=== PATIENT | male | born 1955 | race Caucasian/White ===

== ENCOUNTER 2022-01-02 10:58 | Outpatient (RCR) | payer MEDICARE, BC, SELFPAY ==
[2021-12-26 09:21] LABS: Basophils Absolute Auto 0.03 K/uL (0.00-0.30); Basophils Percent Auto 0.5 % (0.0-3.0); Eosinophils Absolute Auto 0.14 K/uL (0.00-0.50); Eosinophils Percent Auto 2.3 % (0.0-7.0); Hematocrit 46.4 % (37.0-53.0); Hemoglobin* 15.4 gm/dL (13.5-17.5); Immature Granulocytes Abs Auto 0.05 K/uL (0.00-0.30); Mean Corpuscular HGB Conc 33 gm/dL (32-36); Mean Corpuscular Hemoglobin 30 pg (26-34); Mean Corpuscular Volume 91 fL (80-100); Neutrophils Absolute Auto 4.29 K/uL (1.7-7.0); Neutrophils Percent Auto 71.4 % (42.0-72.0); Platelet Count* 168 K/uL (140-440); RDW Coefficient of Variation % 13.6 % (11.5-15.5); Red Blood Count 5.12 m/uL (4.30-5.90); White Blood Count* 6.01 K/uL (4.50-11.00)
[2021-12-26 09:25] LABS: Slide Review Reflex No
[2021-12-26 09:37] LABS: Albumin* 4.6 g/dL (3.3-5.0); Chloride* 102 mmol/L (96-114); Potassium* 4.3 mmol/L (3.6-5.1); Sodium* 140 mmol/L (135-149)
[2021-12-26 09:39] LABS: Creatinine* 1.1 mg/dL (0.5-1.5); Estimated Glomerular Filt Rate 74 ml/min
[2021-12-26 09:40] LABS: Alanine Aminotransferase* 25 U/L (4-50); Alkaline Phosphatase* 51 U/L (40-150); Aspartate Amino Transferase* 23 U/L (12-35); Bilirubin Total* 0.5 mg/dL (0.1-1.5); Blood Urea Nitrogen* 18 mg/dL (7-30); Carbon Dioxide* 30 mmol/L (20-32); Glucose* 113 mg/dL (60-115); Total Protein* 7.4 g/dL (6.0-8.3)
[2021-12-26 09:41] LABS: Calcium* 9.6 mg/dL (8.4-10.6)
--- NOTE | 2022-02-21 10:05 | ONC.NURNOTE ---
Addendum entered and electronically signed by Tatyana Varela APRN 03/03/22 13:34: Spoke with patient's Avril regarding colonoscopy and enoxaparin. Per routine preop orders, hold for 12 hours pre-procedure and restart 12-24 hours after. Mr. Whitehead is dosed daily. Recommend for him to hold dose the day before procedure and resume the day after procedure. Avril states understanding. Original Note: Patient has colonoscopy scheduled for May 2022. Provider is asking about length of time that patient should be off of enoxaparin with this procedure. Dr. Garibay to be asked on , and spouse (Avril) to be called with answer: [phone].
--- NOTE | 2022-04-20 16:02 | PC.NURSE ---
Pt's , Avril, called to ask for clarification about Lovenox re-start instructions. Avril states that the discharge paperwork stated to restart on Sunday and the mobile nurse stated to restart on Sunday. RN advised Avril to call endoscopy tomorrow morning to ask for clarification from the providers who did the procedure.
== END 2022-06-24 23:59 | disposition home or self-care (01) ==
LOC: CCIC 10:58
PROVIDERS: PCP Family Medicine; Referring Provider Family Medicine; Visit Provider Internal Medicine Medical Oncology
DX: C34.91 Malignant neoplasm of unspecified part of right bronchus or lung (principal); I26.99 Other pulmonary embolism without acute cor pulmonale
CPT/HCPCS: 36415; 71250; 80053; 85025; 99212; 99214; 99442

== ENCOUNTER 2022-04-20 10:24 | Outpatient (CLI) | payer MEDICARE, BC, SELFPAY | END 2022-04-20 10:25 | disposition home or self-care (01) | LOC: OP CLINIC 10:26 | PROVIDERS: PCP Family Medicine; Visit Provider Surgery | DX: Z12.11 Encounter for screening for malignant neoplasm of colon (principal); K63.5 Polyp of colon; K62.1 Rectal polyp; Z86.010 Personal history of colon polyps | CPT/HCPCS: 45385; 88305; 99153; J1200; J2250; J3010 ==

== ENCOUNTER 2022-07-15 08:00 | Emergency (ER) | payer MEDICARE, BC, SELFPAY ==
[2022-07-15] VITALS (16 sets, daily range): BP systolic 129–187; BP diastolic 88–110; PULSE 66–88; RESP 18; TEMP 36.3; O2SAT 94–100; BMI 34.4
--- NOTE | 2022-07-15 08:26 | CRLHL7_ITS ---
For Patients: As a result of the Century Cures Act, medical imaging exams and procedure reports are released immediately into your electronic medical record. You may view this report before your referring provider. If you have questions, please contact your health care provider. DATE: 07/15/2022. CLINICAL HISTORY: Facial droop. TECHNIQUE: Standard helical CT image acquisition of the brain was performed. COMPARISON: None available. FINDINGS: Centered in the left basal ganglia, there is a 2.0 cm x 1.8 cm rounded masslike density, similar in attenuation to the weiner matter, with moderately extensive surrounding hypoattenuation throughout the deep white matter tracts, the subinsular region, and extending into the left frontal lobe. There is local mass effect, manifested by effacement of adjacent cerebral sulci, as well as approximately 4 mm of left to right midline shift. There is no acute intracranial hemorrhage. No hydrocephalus. Patchy hypoattenuation in the white matter of both hemispheres likely reflects sequela of chronic small vessel ischemia. There is no intracranial hemorrhage. No extra-axial collection, mass effect, or midline shift. Weiner-white matter differentiation is preserved. The ventricles are normal in size and morphology for patient age. The calvarium is unremarkable. The orbits are unremarkable. Mild mucosal thickening of the sphenoid sinuses and the ethmoid air cells. The mastoid air cells are unremarkable. The soft tissues are unremarkable. IMPRESSION: 2.0 cm x 1.8 cm rounded masslike density in the left basal ganglia, with moderately extensive surrounding hypoattenuation in the deep white matter tracts, subinsular region, extending into the left frontal lobe, with approximately 4 mm of left to right midline shift. Differential considerations include an infectious/inflammatory process versus a neoplastic process. Further assessment with MRI of the brain with and without gadolinium is recommended. Please note that all CT scans at this facility use dose modulation, iterative reconstruction, and/or weight-based dosing when appropriate to reduce radiation dose to as low as reasonably achievable. Dictated by Jared Valenzuela MD @ 07/15/2022 9:37:48 AM (Electronically Signed)
--- NOTE | 2022-07-15 08:36 | ED.GENADULT ---
HPI - General Adult General Chief complaint: Neuro Symptoms/Altered Deficit Stated complaint: Thinks he's having a stroke, pressure in head Time Seen by Provider: 07/15/22 08:02 Source: patient and family Mode of arrival: ambulatory Limitations: no limitations History of Present Illness HPI narrative: 66-year-old male coming in today complaining of feeling funny. States that he has felt unwell for approximately 10 days. He complains of pressure in his head. He states that today he woke up he felt very shaky. He denies fevers or chills. States that in the last 10 days he has felt very forgetful. He states that he often forgets a word that he wants to use, states that this occurs 10-15 times per day. Appetite has been normal, no changes in his vision or hearing. No focal neurologic deficits. He does feel like the right hand however if shake ear than the left. No slurred speech. No vertigo. No difficulty with ambulation. Per his daughter, she noticed that the right side of his mouth was a little droopier this morning when she saw him than the last time she saw him yesterday. 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 He denies missing any doses. He also has a history of lung cancer that has been remission for the last 4 years, he does get check ups every 6 months. Related Data Home Medications Medication Instructions Recorded Confirmed ascorbic acid (vitamin C) 500 mg 500 mg PO QDAY 01/02/22 07/13/22 tablet cholecalciferol (vitamin D3) 25 25 mcg PO QDAY 01/02/22 07/13/22 mcg (1,000 unit) capsule cyanocobalamin (vitamin B-12) 1,000 mcg PO QDAY 01/02/22 07/13/22 1,000 mcg capsule omeprazole 20 mg capsule,delayed 20 mg PO QDAY 01/02/22 07/13/22 release propranolol 40 mg tablet 40 mg PO DAILY 01/02/22 07/13/22 Previous Rx's Medication Instructions Recorded finasteride 5 mg tablet 5 mg PO QDAY #90 tabs 10/05/21 enoxaparin 150 mg/mL subcutaneous 40 mg (0.2667 mL) subcut DAILY #30 02/01/22 syringe mL albuterol sulfate 90 mcg/actuation 2 puff inhalation QID PRN 03/06/22 aerosol inhaler (Ventolin HFA) shortness of breath or wheezing #8.5 grams dexamethasone 4 mg tablet 4 mg PO BID 20 days #40 tabs 07/15/22 levetiracetam 750 mg tablet 750 mg PO BID 20 days #40 tabs 07/15/22 (Keppra) Allergies Allergy/AdvReac Type Severity Reaction Status Date / Time No Known Allergies Allergy Unknown Verified 07/15/22 08:55 Review of Systems Status of ROS: Reports: 10 or more systems reviewed and unremarkable except as noted in History and below [facility] Medical History Health care directive on file ?Z78.9 - Other specified health status (ICD-10) History of colonic polyps (05/22/18) ?Z86.010 - Personal history of colonic polyps (ICD-10) History of deep venous thrombosis (DVT) of distal vein of right lower extremity (05/03/18) ?Z86.718 - Personal history of other venous thrombosis and embolism (ICD-10) Surgical History History of colonoscopy (06/01/18) ?Z98.890 - Other specified postprocedural states (ICD-10) Social History Narrative: Tobacco use Smoking Status: Former smoker How often do you have a drink containing alcohol: never How often do you have six or more drinks on one occasion: Never AUDIT-C Alcohol total score: 0 Non-prescribed substance use: denies use service: No Exam Narrative: Exam Narrative: Overweight, well-developed patient in no acute distress but is slightly anxious. Alert and oriented x3. Answers questions appropriately. Thoughts are goal oriented and rational. No tangential or magical thinking noted. Patient speaks in full sentences without needing to catch his breath. Speech is not slurred or pressured. HEENT: Normocephalic atraumatic. Pupils are equally round reactive to light. Extraocular muscles are intact. Conjunctivae are moist without any icterus noted. Moist mucous membranes. Posterior pharynx is normal. It does appear the patient has a very slight right sided mouth droop. Eyebrows moves symmetrically and remainder of the face appears normal. Cardiovascular: Heart is regular rate and rhythm S1 and S2 are present without any murmurs. Lungs: Slightly decreased breath sounds bilaterally. Abdomen: Soft and nontender nondistended with normal bowel sounds. Protuberant. Extremities: Bilateral lower extremities are without edema. Skin: Well perfused without any obvious rashes. Strength is 5/5 of the upper and lower extremities. Reflexes are 2+ and symmetric at the knees. Romberg sign is negative. No pronator drift. Cranial nerves 3-12 are normal aside from the slight asymmetry of the mouth. [id number] is normal. [id number] is normal. There is no nystagmus either horizontally or vertically. Gait is normal. Const: Vital Signs, click to edit/add: Vital Signs - 24 hr 07/15/22 08:04 07/15/22 08:27 07/15/22 08:09 Temperature 97.4 F L Pulse Rate 74 Respiratory Rate 18 Blood Pressure 182/110 H Blood Pressure [Le ft Upper Arm] 187/103 H Pulse Oximetry 98 100 99 Oxygen Delivery Me thod Room Air 07/15/22 08:10 07/15/22 08:15 07/15/22 08:30 Temperature Pulse Rate 75 75 71 Respiratory Rate Blood Pressure Blood Pressure [Le ft Upper Arm] Pulse Oximetry 98 98 98 Oxygen Delivery Me thod 07/15/22 09:24 07/15/22 09:26 07/15/22 09:30 Temperature Pulse Rate 66 66 67 Respiratory Rate Blood Pressure 147/95 H Blood Pressure [Le ft Upper Arm] Pulse Oximetry 95 94 96 Oxygen Delivery Me thod 07/15/22 09:32 07/15/22 09:33 07/15/22 11:15 Temperature Pulse Rate 67 66 68 Respiratory Rate Blood Pressure 129/90 H 129/94 H Blood Pressure [Le ft Upper Arm] Pulse Oximetry 96 96 97 Oxygen Delivery Me thod 07/15/22 11:16 Temperature Pulse Rate 67 Respiratory Rate Blood Pressure Blood Pressure [Le ft Upper Arm] Pulse Oximetry 98 Oxygen Delivery Me thod Course Course Hospital Course: IV established and labs were drawn. Patient went to CT for stroke protocol, however we stopped after the head CT came back with an obvious abnormality. Per radiologist abnormality appear to be either inflammatory, infectious or neoplastic. I did discuss the case with Dr. Zamudio and Dr. Coughlin, oncologist and neurologist respectively at [facility], who recommended an MRI. MRI did show that same lesion with 2 more areas, all consistent with neoplastic disease. EKG, read by me, shows sinus rhythm with a pulse of 67, first-degree AV block. Patient's lab work was unremarkable aside from 2-5 RBCs in his urine. Per the [place] team, they recommended IV Decadron which was given in the ER today and discharge on Keppra, Decadron and omeprazole. Vital Signs Vital signs: Initial Vital Signs Temperature 97.4 F L 07/15/22 08:04 Temperature Source Temporal Artery Scan 07/15/22 08:04 Pulse Rhythm Regular 07/15/22 08:04 Respiratory Rate 18 07/15/22 08:04 Blood Pressure 187/103 H 07/15/22 08:04 Blood Pressure Mean 131 H 07/15/22 08:04 Blood Pressure Position Sitting 07/15/22 08:04 Pulse Oximetry 98 07/15/22 08:04 Oxygen Delivery Method Room Air 07/15/22 08:04 Vital Signs Temperature 97.4 F L 07/15/22 08:04 Respiratory Rate 18 07/15/22 08:04 Blood Pressure 187/103 H 07/15/22 08:04 Pulse Oximetry 98 07/15/22 08:04 Oxygen Delivery Method Room Air 07/15/22 08:04 Temperature 97.4 F L 07/15/22 08:04 Pulse Rate 67 07/15/22 11:16 Respiratory Rate 18 07/15/22 08:04 Blood Pressure 129/94 H 07/15/22 11:15 Pulse Oximetry 98 07/15/22 11:16 Oxygen Delivery Method Room Air 07/15/22 08:04 Medical Decision Making MDM Narrative Medical decision making narrative: 66-year-old male with what appears to be likely metastatic brain cancer. Patient's symptoms have not progressed throughout his stay here. Therefore it was decided that he was stable to go home. Will be sent home on Keppra, Decadron and he is already taking omeprazole which he is to continue. He will follow up with his cancer team Sunday, he already has an appointment scheduled. The [facility] Neurology and Oncology team will also call him on Sunday and he is instructed to call them in the event he does not hear from them by noon. Patient and his family were agreeable with everything we discussed and had no other questions. Medical Records Medical records reviewed: Yes I reviewed the patient's medical records Lab Data Lab results reviewed: Yes I reviewed the patient's lab results Labs: Lab Results 07/15/22 07/15/22 07/15/22 Range/Units 08:27 08:28 08:45 WBC 6.53 (4.50-11.00) K/uL RBC 5.49 (4.30-5.90) m/uL Hgb 16.2 (13.5-17.5) gm/dL Hct 49.3 (37.0-53.0) % MCV 90 (80-100) fL MCH 30 (26-34) pg MCHC 33 (32-36) gm/dL RDW Coeff of [place] 13.0 (11.5-15.5) % Plt Count 210 (140-440) K/uL Neut % (Auto) 75.8 H (42.0-72.0) % Lymph % (Auto) 12.3 L (20-44) % [place] % (Auto) 9.6 (0.0-11.0) % Eos % (Auto) 1.5 (0.0-7.0) % Baso % (Auto) 0.6 (0.0-3.0) % Neut # (Auto) 4.90 (1.7-7.0) K/uL Lymph # (Auto) 0.80 L (0.90-2.90) K/uL [place] # (Auto) 0.60 (0.00-0.90) K/UL Eos # (Auto) 0.10 (0.00-0.50) K/uL Baso # (Auto) 0.04 (0.00-0.30) K/uL Sodium 138 (135-149) mmol/L Potassium 4.4 (3.6-5.1) mmol/L Chloride 102 (96-114) mmol/L Carbon Dioxide 29 (20-32) mmol/L BUN 20 (7-30) mg/dL Creatinine 1.2 (0.5-1.5) mg/dL Estimated Creat Clear 53.91 Estimated GFR 66 ml/min Glucose 113 (60-115) mg/dL Lactate 0.7 (0.5-1.9) mmol/L Calcium 9.3 (8.4-10.6) mg/dL Total Bilirubin 0.7 (0.1-1.5) mg/dL Direct Bilirubin 0.3 (0.0-0.5) mg/dL AST 23 (12-35) U/L ALT 29 (4-50) U/L Alkaline Phosphatase 42 (40-150) U/L Troponin I < 0.01 L (0.01-0.04) ng/mL C-Reactive Protein 0.6 (0.5-1.0) mg/dL Total Protein 7.9 (6.0-8.3) g/dL Albumin 4.6 (3.3-5.0) g/dL TSH 2.330 (0.270-4.20) uIU/mL Urine Color Yellow (Yellow) Urine Appearance Clear (Clear) Urine pH 6.0 (5.0-8.5) Ur Specific [place] 1.010 (1.000-1.030) Urine Protein Negative (Negative) Urine Glucose (UA) Negative (Negative) Urine Ketones Negative (Negative) Urine Blood Trace-intact A (Negative) Urine Nitrite Negative (Negative) Urine Bilirubin Negative (Negative) Urine Urobilinogen 0.2 (0.2-1.0) Ur Leukocyte Esterase Negative (Negative) Urine RBC 2-5 A (0-2) Urine WBC 0-2 (0-5) Ur Squamous Epith Cells Few (None-Few) Urine Bacteria None (None) Urine Opiates Screen Negative (Negative) Ur Oxycodone Screen Negative (Negative) Urine Methadone Screen Negative (Negative) Ur Propoxyphene Screen Negative (Negative) Ur Barbiturates Screen Negative (Negative) U Tricyclic Antidepress Negative (Negative) Ur Phencyclidine Scrn Negative (Negative) Ur Amphetamines Screen Negative (Negative) U Methamphetamines Scrn Negative (Negative) U Benzodiazepines Scrn Negative (Negative) Urine Cocaine Screen Negative (Negative) U Marijuana (THC) Screen Negative (Negative) Ur Drug Screen Comment See Note Ethyl Alcohol < 0.01 L (0.01-0.03) % POC Troponin I 0.01 (0.01-0.04) ng/ml Imaging Data CT scan - head: Attestation: I have reviewed the pertinent imaging results. Radiologist's impression: Standard helical CT image acquisition of the brain was performed. COMPARISON: None available. FINDINGS: Centered in the left basal ganglia, there is a 2.0 cm x 1.8 cm rounded masslike density, similar in attenuation to the weiner matter, with moderately extensive surrounding hypoattenuation throughout the deep white matter tracts, the subinsular region, and extending into the left frontal lobe. There is local mass effect, manifested by effacement of adjacent cerebral sulci, as well as approximately 4 mm of left to right midline shift. There is no acute intracranial hemorrhage. No hydrocephalus. Patchy hypoattenuation in the white matter of both hemispheres likely reflects sequela of chronic small vessel ischemia. There is no intracranial hemorrhage. No extra-axial collection, mass effect, or midline shift. Weiner-white matter differentiation is preserved. The ventricles are normal in size and morphology for patient age. The calvarium is unremarkable. The orbits are unremarkable. Mild mucosal thickening of the sphenoid sinuses and the ethmoid air cells. The mastoid air cells are unremarkable. The soft tissues are unremarkable. IMPRESSION: 2.0 cm x 1.8 cm rounded masslike density in the left basal ganglia, with moderately extensive surrounding hypoattenuation in the deep white matter tracts, subinsular region, extending into the left frontal lobe, with approximately 4 mm of left to right midline shift. Differential considerations include an infectious/inflammatory process versus a neoplastic process. Further assessment with MRI of the brain with and without gadolinium is recommended. MR Brain: Attestation: I have reviewed the pertinent imaging results. Radiologist's impression: Technique: Multiplanar, multisequence MRI of the brain obtained without and with contrast. A total of 15 mL of gadolinium-based IV contrast was administered. Comparison: CT head 07/15/2022, MRI brain 02/10/2020 Findings: 2.5 cm enhancing mass, the left frontal oconnell radiata (series 11, image 65). 7 mm ring-enhancing lesion, left hippocampal body (series 11 image 97). 6 mm enhancing nodule, right inferior cerebellum (series 11, image 126). No other suspicious brain parenchymal enhancement. Redemonstration of incidental right parietal DVA. Extensive surrounding vasogenic edema surrounding the left frontal oconnell radiata lesion, with milder edema about the subcentimeter lesions. Approximately 5-6 mm rightward midline shift. No evidence of acute/subacute ischemia, intracranial hemorrhage, or abnormal extra-axial fluid collection. Background of small scattered FLAIR hyperintense white matter foci, typical for mild chronic microangiopathy. Major expected intracranial flow voids are preserved where visualized. Bone marrow signal is unremarkable. Ethmoid sinus mucosal thickening. No paranasal sinus air-fluid level or mastoid effusion. Unremarkable visualized orbits. Impression: Approximately 2.5 cm enhancing mass in the left frontal oconnell radiata, with extensive surrounding vasogenic edema and 5-6 mm rightward midline shift. Smaller subcentimeter enhancing lesions are present within the left hippocampal body and right inferior cerebellum. Given history of prior malignancy, these are highly suspicious for metastatic disease. Clinical correlation advised. ECG Data Attestation: I personally reviewed and interpreted this ECG as follows: Discharge Plan Discharge Clinical Impression: Brain lesion Patient Disposition: Home, Self-Care Condition: Stable Additional Instructions: Start Decadron as directed-this will decrease the amount of swelling around the lesion in the brain to help you feel better. We will also be started on Keppra, this medication will prevent any seizures which can occur secondary to the swelling in the brain. Continue your daily omeprazole. Continue these medications as long as your oncologist wants you to be on them. Make sure to follow-up 1st thing Sunday morning with your oncology team and make sure that your oncologist is aware of what occurred this weekend. You will be sent home with a copy of the reports of all of your scans. The [facility] team will be calling you on Sunday to set up follow-up appointments with Neurology and Oncology. If you do not hear from them by noon I do recommend you call them to have all your appointment scheduled. Alfie Hernandez (oncologist and neurologist at [facility]) are aware of today's visit. Prescriptions: New levetiracetam [Keppra] 750 mg tablet 750 mg PO BID 20 Days Qty: 40 0RF dexamethasone 4 mg tablet 4 mg PO BID 20 Days Qty: 40 0RF No Action omeprazole 20 mg capsule,delayed release(DR/EC) 20 mg PO QDAY propranolol 40 mg tablet 40 mg PO DAILY ascorbic acid (vitamin C) 500 mg tablet 500 mg PO QDAY cholecalciferol (vitamin D3) 25 mcg (1,000 unit) capsule 25 mcg PO QDAY cyanocobalamin (vitamin B-12) 1,000 mcg capsule 1,000 mcg PO QDAY finasteride 5 mg tablet 5 mg PO QDAY Qty: 90 3RF enoxaparin 150 mg/mL syringe 40 mg subcut DAILY Qty: 30 5RF albuterol sulfate [Ventolin HFA] 90 mcg/actuation HFA aerosol inhaler 2 puff inhalation QID PRN (Reason: shortness of breath or wheezing) Qty: 8.5 8RF Follow Up/Referrals: August Parr MD [Primary Care Provider] - Stand Alone Forms: [facility] Info Instructions
[2022-07-15 08:57] LABS: Lactate* 0.7 mmol/L (0.5-1.9)
[2022-07-15 08:59] LABS: Appearance Urine Clear (Clear); Bilirubin Urine Negative (Negative); Blood Urine Trace-intact (Negative); Color Urine Yellow (Yellow); Glucose Urine Negative (Negative); Ketones Urine Negative (Negative); Leukocyte Esterase Urine Negative (Negative); Nitrite Urine Negative (Negative); Protein Urine Negative (Negative); Urobilinogen Urine 0.2 (0.2-1.0)
[2022-07-15 09:01] LABS: Basophils Absolute Auto 0.04 K/uL (0.00-0.30); Basophils Percent Auto 0.6 % (0.0-3.0); Eosinophils Percent Auto 1.5 % (0.0-7.0); Hematocrit 49.3 % (37.0-53.0); Hemoglobin* 16.2 gm/dL (13.5-17.5); Immature Granulocytes Abs Auto 0.01 K/uL (0.00-0.30); Immature Granulocytes Pct Auto 0.2 %; Lymphocytes Percent Auto 12.3 % (20-44); Mean Corpuscular HGB Conc 33 gm/dL (32-36); Mean Corpuscular Hemoglobin 30 pg (26-34); Mean Corpuscular Volume 90 fL (80-100); Monocytes Percent Auto 9.6 % (0.0-11.0); Neutrophils Percent Auto 75.8 % (42.0-72.0); Platelet Count* 210 K/uL (140-440); Red Blood Count 5.49 m/uL (4.30-5.90); White Blood Count* 6.53 K/uL (4.50-11.00)
[2022-07-15 09:03] LABS: Slide Review Reflex No
[2022-07-15 09:06] LABS: WBC Urine 0-2 (0-5)
[2022-07-15 09:07] LABS: Squamous Epithelial Cell Urine Few (None-Few)
[2022-07-15 09:09] LABS: Amphetamine Screen Urine Negative (Negative); Barbiturate Screen Urine Negative (Negative); Benzodiazepines Screen Urine Negative (Negative); Cannabinoid Screen Urine Negative (Negative); Cocaine Screen Urine Negative (Negative); Methadone Screen Urine Negative (Negative); Methamphetamines Screen Urine Negative (Negative); Opiate Screen Urine Negative (Negative); Oxycodone Screen Urine Negative (Negative); Phencyclidine Screen Urine Negative (Negative); Tricyclic Antidepressant Urine Negative (Negative)
[2022-07-15 09:14] LABS: Chloride* 102 mmol/L (96-114); Sodium* 138 mmol/L (135-149)
[2022-07-15 09:14] LABS: Troponin, Point-of-Care* 0.01 ng/ml (0.01-0.04)
[2022-07-15 09:15] LABS: Potassium* 4.4 mmol/L (3.6-5.1)
[2022-07-15 09:16] LABS: Albumin* 4.6 g/dL (3.3-5.0)
[2022-07-15 09:17] LABS: Creatinine* 1.2 mg/dL (0.5-1.5); Est. Creatinine Clearance* 53.91; Estimated Glomerular Filt Rate 66 ml/min
[2022-07-15 09:18] LABS: Blood Urea Nitrogen* 20 mg/dL (7-30); Carbon Dioxide* 29 mmol/L (20-32); Glucose* 113 mg/dL (60-115)
[2022-07-15 09:19] LABS: Calcium* 9.3 mg/dL (8.4-10.6)
[2022-07-15 09:19] LABS: Alanine Aminotransferase* 29 U/L (4-50); Alkaline Phosphatase* 42 U/L (40-150); Aspartate Amino Transferase* 23 U/L (12-35); Bilirubin Direct* 0.3 mg/dL (0.0-0.5); Bilirubin Total* 0.7 mg/dL (0.1-1.5); Total Protein* 7.9 g/dL (6.0-8.3)
[2022-07-15 09:21] LABS: C Reactive Protein* 0.6 mg/dL (0.5-1.0)
[2022-07-15 09:22] LABS: Ethanol* < 0.01 % (0.01-0.03)
[2022-07-15 09:32] LABS: Troponin I* < 0.01 ng/mL (0.01-0.04)
--- NOTE | 2022-07-15 10:43 | CRLHL7_ITS ---
For Patients: As a result of the Century Cures Act, medical imaging exams and procedure reports are released immediately into your electronic medical record. You may view this report before your referring provider. If you have questions, please contact your health care provider. Indication: Intracranial mass. History of non-small cell lung cancer. Technique: Multiplanar, multisequence MRI of the brain obtained without and with contrast. A total of 15 mL of gadolinium-based IV contrast was administered. Comparison: CT head 07/15/2022, MRI brain 02/10/2020 Findings: 2.5 cm enhancing mass, the left frontal oconnell radiata (series 11, image 65). 7 mm ring-enhancing lesion, left hippocampal body (series 11 image 97). 6 mm enhancing nodule, right inferior cerebellum (series 11, image 126). No other suspicious brain parenchymal enhancement. Redemonstration of incidental right parietal DVA. Extensive surrounding vasogenic edema surrounding the left frontal oconnell radiata lesion, with milder edema about the subcentimeter lesions. Approximately 5-6 mm rightward midline shift. No evidence of acute/subacute ischemia, intracranial hemorrhage, or abnormal extra-axial fluid collection. Background of small scattered FLAIR hyperintense white matter foci, typical for mild chronic microangiopathy. Major expected intracranial flow voids are preserved where visualized. Bone marrow signal is unremarkable. Ethmoid sinus mucosal thickening. No paranasal sinus air-fluid level or mastoid effusion. Unremarkable visualized orbits. Impression: Approximately 2.5 cm enhancing mass in the left frontal oconnell radiata, with extensive surrounding vasogenic edema and 5-6 mm rightward midline shift. Smaller subcentimeter enhancing lesions are present within the left hippocampal body and right inferior cerebellum. Given history of prior malignancy, these are highly suspicious for metastatic disease. Clinical correlation advised. Dictated by Marichuy Baugh MD @ 07/15/2022 12:55:49 PM (Electronically Signed)
[2022-07-15] MEDS: dexAMETHasone 10 MG/ML inj IV (11:09)
--- NOTE | 2022-07-15 14:43 | ED.NURSE ---
Copy of imaging reports, CD of images, and Dc instructions given and discussed with patient.
== END 2022-07-15 14:44 | disposition home or self-care (01) ==
PROVIDERS: Emergency Provider Family Medicine; PCP Family Medicine
DX: G93.89 Other specified disorders of brain (principal)
CPT/HCPCS: 36415; 70450; 70553; 80048; 80076; 80306; 81001; 82077; 83605; 84443; 84484; 85025; 86140; 87086; 93005; 94761; 99285; A9575; J1100

== ENCOUNTER 2022-08-03 10:30 | Outpatient (RCR) | payer MEDICARE, BC, SELFPAY ==
[2022-07-17 09:06] LABS: Eosinophils Percent Auto 0.1 % (0.0-7.0); Hematocrit 46.5 % (37.0-53.0); Hemoglobin* 15.5 gm/dL (13.5-17.5); Immature Granulocytes Pct Auto 0.2 %; Lymphocytes Percent Auto 5.3 % (20-44); Mean Corpuscular HGB Conc 33 gm/dL (32-36); Mean Corpuscular Hemoglobin 30 pg (26-34); Mean Corpuscular Volume 90 fL (80-100); Monocytes Percent Auto 7.3 % (0.0-11.0); Neutrophils Percent Auto 87.1 % (42.0-72.0); Platelet Count* 242 K/uL (140-440); RDW Coefficient of Variation % 13.1 % (11.5-15.5); Red Blood Count 5.19 m/uL (4.30-5.90); White Blood Count* 12.59 K/uL (4.50-11.00)
[2022-07-17 09:09] LABS: Slide Review Reflex No
[2022-07-17 09:24] LABS: Albumin* 4.6 g/dL (3.3-5.0); Chloride* 100 mmol/L (96-114); Sodium* 136 mmol/L (135-149)
[2022-07-17 09:26] LABS: Creatinine* 1.3 mg/dL (0.5-1.5); Estimated Glomerular Filt Rate 60 ml/min
[2022-07-17 09:27] LABS: Alanine Aminotransferase* 31 U/L (4-50); Alkaline Phosphatase* 38 U/L (40-150); Aspartate Amino Transferase* 23 U/L (12-35); Bilirubin Total* 0.6 mg/dL (0.1-1.5); Blood Urea Nitrogen* 29 mg/dL (7-30); Carbon Dioxide* 29 mmol/L (20-32); Glucose* 135 mg/dL (60-115); Total Protein* 7.8 g/dL (6.0-8.3)
[2022-07-17 09:28] LABS: Calcium* 9.7 mg/dL (8.4-10.6)
--- NOTE | 2022-07-21 13:30 | ONC.NURNOTE ---
Addendum entered by Isabella Yoo RN 07/21/22 15:18: Email from Dr. Garibay notes that patient should take last dose on Sunday. Patients spouse, Avril notified. Original Note: Patient's called office to state that he is having surgery on Sunday, and having radiation about three weeks following this. He had an appointment scheduled for next that will need to be cancelled, nursing to find out from provider when should follow up with medical oncology. Patient also questioned about how long prior to procedure he should hold his enoxaparin. Email sent to Dr. Garibay to determine this, so that patient can be made aware today. Patient takes his enoxaparin right away in the morning.
--- NOTE | 2022-08-08 14:44 | ONC.NURNOTE ---
[employer] Operator returned call to Rad Onc about follow up: Dr Mcgrath saw the CT neck results ordered by Whit Wang APRN
== END 2023-01-13 23:59 | disposition home or self-care (01) ==
LOC: CCIC 10:30
PROVIDERS: Internal Medicine Medical Oncology; PCP Family Medicine; Referring Provider Family Medicine; Visit Provider Internal Medicine Hematology & Oncology
DX: C34.91 Malignant neoplasm of unspecified part of right bronchus or lung (principal); Z86.711 Personal history of pulmonary embolism
CPT/HCPCS: 36415; 71260; 80053; 85025; 99212; 99215; Q9967

== ENCOUNTER 2022-10-11 10:09 | Outpatient (CLI) | payer MEDICARE, BC, SELFPAY | END 2022-10-11 10:10 | disposition home or self-care (01) | LOC: MRI 10:09 | PROVIDERS: PCP Family Medicine; Visit Provider Internal Medicine | DX: C79.31 Secondary malignant neoplasm of brain (principal) | CPT/HCPCS: 70553; A9575 ==

== ENCOUNTER 2023-01-05 09:57 | Outpatient (CLI) | payer MEDICARE, BC, SELFPAY ==
--- NOTE | 2023-01-05 10:15 | CRLHL7_ITS ---
For Patients: As a result of the Century Cures Act, medical imaging exams and procedure reports are released immediately into your electronic medical record. You may view this report before your referring provider. If you have questions, please contact your health care provider. INDICATION: Lung cancer. COMPARISON: 10/11/2022. 07/15/2022 TECHNIQUE: Multiplanar T1, T2, FLAIR and diffusion-weighted imaging. Post gadolinium T1 weighted sequences. FINDINGS: Compared to the previous exam, the enhancing mass of the left mid oconnell radiata has continued to decrease in size now measures approximately 1.3 x 0.8 cm (series 15, image 65). Surrounding vasogenic edema has also decreased slightly. Similarly, an enhancing lesion of the left medial temporal lobe involving the para hippocampal gyrus has decreased in size now measuring approximately 3 mm in maximal diameter (series 15, image 99). Stable tiny 2 mm punctate focus of enhancement of the right cerebellum (series 15, image 144) is less conspicuous. However, there is a new ring-enhancing lesion along the cortex of the left anterior superior frontal lobe measures 3 mm in maximum diameter (series 15, image 32). A 3 mm enhancing nodule along the cortex of the left middle frontal gyrus adjacent to the precentral sulcus (series 15, image 37). Ring-enhancing lesion along the cortex of the lateral left frontal lobe measuring 6 mm in diameter (series 15, image 66). Stable tiny developmental venous anomaly of the right parietal lobe which is an incidental finding. Scattered foci of T2/FLAIR signal hyperintense within the white matter both supra hemispheres likely represents chronic deep white matter small vessel ischemic changes. No intracranial hemorrhage. No abnormal ventricular dilatation. Intracranial vascular flow voids are preserved. No mass effect or midline shift. No restricted diffusion to suggest acute ischemia. Bilateral orbits are unremarkable. Normal appearing sella. Visualized paranasal sinuses mastoid air cells are unremarkable. IMPRESSION: 1. Compared to the prior exams, continued interval decrease size and conspicuity of enhancing metastatic lesions of the mid left oconnell radiata, left medial temporal lobe, and right cerebellum. 2. New sub centimeter ring-enhancing lesions of left anterior superior frontal lobe, left middle frontal gyrus, and lateral left frontal lobe consistent with new metastases. 3. No midline shift. 4. No acute intracranial abnormality Dictated by Mata Boyd MD @ 01/08/2023 12:09:10 PM (Electronically Signed)
== END 2023-01-05 09:58 | disposition home or self-care (01) ==
LOC: MRI 09:57
PROVIDERS: PCP Family Medicine; Visit Provider Internal Medicine
DX: C34.90 Malignant neoplasm of unspecified part of unspecified bronchus or lung (principal)
CPT/HCPCS: 70553; A9575

== ENCOUNTER 2023-02-06 08:31 | Outpatient (CLI) | payer MEDICARE, BC, SELFPAY ==
--- NOTE | 2023-02-06 09:00 | CRLHL7_ITS ---
For Patients: As a result of the Century Cures Act, medical imaging exams and procedure reports are released immediately into your electronic medical record. You may view this report before your referring provider. If you have questions, please contact your health care provider. Indication: FOLLOW UP LUNG CANCER Technique: CT Chest 75CC ISOVUE 370 Please note that all CT scans at this facility use dose modulation, iterative reconstruction, and/or weight-based dosing when appropriate to reduce radiation dose to as low as reasonably achievable. Comparison: 07/17/2022 Findings: Stable post treatment changes to the right perihilar lung with similar soft tissue fullness about the proximal airways extending along the right lower lobe bronchovascular bundle. No suspicious pulmonary nodule. Linear subsegmental atelectasis/scarring in both lower lobes. Trace amount of right pleural fluid. Upper abdomen unremarkable. No adenopathy. Visualized thyroid normal. Mild atherosclerotic changes. Chronic changes to the thoracic spine with anterior spurring. No acute fracture or intrinsic lesion. Impression: No significant change since the prior study. Stable post treatment changes to the right perihilar lung extending along the right lower lobe bronchovascular bundle. Please note that all CT scans at this facility use dose modulation, iterative reconstruction, and/or weight-based dosing when appropriate to reduce radiation dose to as low as reasonably achievable. Dictated by Ashish Harp MD @ 02/09/2023 2:31:01 PM (Electronically Signed)
[2023-02-06 09:09] LABS: Creatinine* 1.2 mg/dL (0.5-1.5); Estimated Glomerular Filt Rate 66 ml/min
== END 2023-02-06 08:32 | disposition home or self-care (01) ==
LOC: CT 08:32
PROVIDERS: PCP Family Medicine; Visit Provider Clinical Nurse Specialist
DX: C34.91 Malignant neoplasm of unspecified part of right bronchus or lung (principal)
CPT/HCPCS: 36415; 71260; 82565; Q9967

== ENCOUNTER 2023-02-09 09:11 | Outpatient (CLI) | payer MEDICARE, BC, SELFPAY ==
--- NOTE | 2023-02-09 09:45 | PE_ITS ---
[facility] [address] [facility] [address] Phone:?[phone] Fax:?[phone] Referring Physician Information: Lima Lanier [address] [facility] [address] Phone:?[phone] Fax:?[phone] Patient:Hector Whitehead D.O.B:?1955 Sex:?Male Phone:?[phone] [facility] MRN:?[id number] Exam Date:?02/09/2023 EXAM: PET/CT SCAN MID-ORBITS TO PROXIMAL THIGHS CLINICAL INFORMATION: Non-small cell metastatic lung carcinoma TECHNICAL INFORMATION: Spiral acquisition of data was obtained from the mid orbits to the proximal thighs with reconstruction of 3.75 mm thick images at 3.[address] data was used for attenuation correction. PET scanning was perfor. Med through the same anatomic range 55 minutes following administration of 11.14 mCi of 18-FDG delivered intravenously. The patient's glucose at the time of the injection was 94 mg/dL. PET, CT and PET/CT fusion images are interpreted using a computer viewing workstation. COMPARISON: Chest CT 02/06/2023 [facility]. PET/CT report 08/14/2019 INTERPRETATION: Head and Neck: No abnormal FDG uptake, mass or adenopathy. Chest: Right parahilar soft tissue thickening/fibrosis demonstrating minimal FDG avidity, SUV max 4.4 (mediastinal blood pool SUV 3.81, background liver 4.03 SUV). No additional lung nodule or infiltrate. No hilar, mediastinal or axillary adenopathy. Abdomen, Pelvis and Proximal Thighs: No focal abnormality within the liver, spleen, pancreas, adrenal glands or kidneys. No GI tract abnormality. No retroperitoneal, mesenteric or pelvic adenopathy. No focal skeletal lesion. Degenerative spine change. CONCLUSION: 1. Right perihilar postradiation soft tissue thickening, SUV max 4.4, likely fibrosis without suspected evidence of local recurrent disease. 2. No additional acute PET/CT abnormality is identified. Electronically signed on 02/10/2023 1:36:00 PM by William Noyola M.D.
== END 2023-02-09 09:12 | disposition home or self-care (01) ==
LOC: RAD 09:12
PROVIDERS: PCP Family Medicine; Visit Provider Physician Assistant
DX: C34.31 Malignant neoplasm of lower lobe, right bronchus or lung (principal)
CPT/HCPCS: 78815; A9552

== ENCOUNTER 2023-03-26 08:58 | Outpatient (CLI) | payer MEDICARE, BC, SELFPAY | END 2023-03-26 08:59 | disposition home or self-care (01) | PROVIDERS: PCP Family Medicine; Visit Provider Nurse Practitioner | DX: C34.31 Malignant neoplasm of lower lobe, right bronchus or lung (principal); C79.31 Secondary malignant neoplasm of brain | CPT/HCPCS: 70553; A9575 ==

== ENCOUNTER 2023-05-31 09:50 | Outpatient (CLI) | payer MEDICARE, BC, SELFPAY ==
--- NOTE | 2023-05-31 10:00 | PE_ITS ---
[facility] [address] [facility] [id number] Phone:?[phone] Fax:?[phone] Referring Physician Information: Yoanna Mcgrath M.D. [address] [facility] [address] Phone:?[phone] Fax:?[phone] Patient:Hector Whitehead D.O.B:?1955 Sex:?Male Phone:?[phone] [facility] MRN:?[id number] Exam Date:?05/31/2023 EXAM: PET/CT EYES TO THIGHS, CANCER RESTAGING CLINICAL INFORMATION: Lung cancer, restaging. TECHNICAL INFORMATION: Helical acquisition of data was obtained from the orbits to the upper thighs with reconstruction of 3.75 mm thick images at 3.[address] data was used for attenuation correction. PET scanning was performed through the same anatomic range 52 minutes following administration of 11.5 mCi of 18-FDG delivered intravenously. The patient's glucose at the time of the injection was 61 mg/dL. PET, CT and PET/CT fusion images are interpreted using a computer viewing workstation. PET, CT and PET/CT fusion images were archived and saved in the patient's permanent medical record. COMPARISON: PET-CT from 02/09/2023. INTERPRETATION: Head and Neck: There are no abnormal hypermetabolic foci within the head or neck. There is physiologic uptake in the intracranial soft tissues. Chest: When compared to the PET-CT from January 2023, there is stable right parahilar soft tissue thickening/fibrosis with subtle FDG avidity, with a maximum SUV of 3.55, previously 4.40. There are no other abnormal hypermetabolic foci within the chest. Background mediastinal blood pool uptake has a maximum SUV of 3.03. No lung nodules or masses detected on this free-breathing exam. No lymphadenopathy detected. Abdomen and Pelvis: There are no abnormal hypermetabolic foci within the abdomen or pelvis. Background hepatic parenchymal uptake has a maximum SUV of 3.82. There is physiologic excretion of radiotracer in the urine and bowel. Skeleton, Musculature, and Integument: No abnormal hypermetabolic foci within the skeleton. No gavino osteoblastic or osteolytic disease. CONCLUSION: Stable right perihilar soft tissue thickening with minimal FDG uptake, as before. 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 No convincing evidence of local recurrence or viable svitlana/distant metastasis at this time. Electronically signed on 05/31/2023 3:49:00 PM by Matt Gaines M.D.
== END 2023-05-31 09:51 | disposition home or self-care (01) ==
LOC: RAD 09:52
PROVIDERS: PCP Family Medicine; Visit Provider Internal Medicine Hematology & Oncology
DX: C34.31 Malignant neoplasm of lower lobe, right bronchus or lung (principal)
CPT/HCPCS: 78815; A9552

== ENCOUNTER 2023-06-14 09:04 | Outpatient (CLI) | payer MEDICARE, BC, SELFPAY | END 2023-06-14 09:05 | disposition home or self-care (01) | LOC: MRI 09:04 | PROVIDERS: PCP Family Medicine; Visit Provider Internal Medicine | DX: C79.31 Secondary malignant neoplasm of brain (principal) | CPT/HCPCS: 70553; A9575 ==

== ENCOUNTER 2023-06-20 13:30 | Outpatient (RCR) | payer MEDICARE, BC, SELFPAY ==
--- NOTE | 2023-06-25 15:50 | ONC.NURNOTE ---
Pet scan order and supporting documentation faxed to [facility]. Pt updated on date and time of scan.
== END 2023-08-11 23:59 | disposition home or self-care (01) ==
LOC: CCIC 13:30
PROVIDERS: PCP Family Medicine; Referring Provider Family Medicine; Visit Provider Internal Medicine Hematology & Oncology
DX: C34.91 Malignant neoplasm of unspecified part of right bronchus or lung (principal); C79.31 Secondary malignant neoplasm of brain; Z86.711 Personal history of pulmonary embolism; Z79.01 Long term (current) use of anticoagulants
CPT/HCPCS: 70450; 81445; 99213; 99214; 99215; G0463

== ENCOUNTER 2023-08-15 10:07 | Outpatient (CLI) | payer MEDICARE, BC, SELFPAY ==
--- NOTE | 2023-08-15 10:15 | CRLHL7_ITS ---
For Patients: As a result of the Century Cures Act, medical imaging exams and procedure reports are released immediately into your electronic medical record. You may view this report before your referring provider. If you have questions, please contact your health care provider. Indication: Follow-up intracranial metastatic disease. Technique: T1 sagittal as well as diffusion, FLAIR and T2 axial sequences were obtained. Post gadolinium T1 sequences were obtained. Contrast: 20 cc Dotarem Comparison: 06/14/2023. Findings: There is a 7 mm rounded enhancing metastasis in the caudal 4th ventricle near the outlet for the foramen of [place], decreased from 10 mm on 06/14/2023. There is a 14 mm lobulated enhancing metastasis in the left mid frontal oconnell radiata white matter, unchanged. Additional punctate enhancing metastatic lesions are present in the cortex/subcortical white matter of the left occipital and frontal lobes, unchanged or slightly decreased in size. Mild presumed small vessel ischemic changes elsewhere in the cerebral white matter, unchanged. No hemorrhage. No mass effect. No ventricular obstruction. Mild distention of both optic nerve sheaths. Grossly normal flow voids are maintained in the directly imaged intracranial vascular structures. The craniovertebral junction is unremarkable, with a patent foramen magnum. Both temporal bones are clear. There is slight membrane thickening in the ethmoid paranasal sinuses. Impression: 1. Multifocal enhancing metastatic disease. The 4th ventricular lesion has decreased in size from 06/14/2023. The supratentorial metastases show little interval change. 2. No new metastatic disease is identified. 3. Stable mild chronic microvascular ischemic changes. Dictated by Tin June MD @ 08/16/2023 1:49:42 PM (Electronically Signed)
== END 2023-08-15 10:08 | disposition home or self-care (01) ==
LOC: MRI 10:07
PROVIDERS: PCP Family Medicine; Visit Provider Nurse Practitioner
DX: C79.31 Secondary malignant neoplasm of brain (principal); I67.82 Cerebral ischemia
CPT/HCPCS: 70553; A9575

== ENCOUNTER 2023-09-15 08:46 | Emergency (ER) | payer MEDICARE, BC, SELFPAY ==
[2023-09-15 08:49] VITALS: BP 168/85; PULSE 83; RESP 22; TEMP 36.4; O2SAT 95; BMI 34.9
--- NOTE | 2023-09-15 09:18 | ED.GENADULT ---
HPI - General Adult General Time Seen by Provider: 09:18 Date Seen: 09/15/23 Chief complaint: Cough Stated complaint: congested, cough, headache Time Seen by Provider: 09/15/23 09:14 Source: patient, RN notes reviewed and old records reviewed Mode of arrival: ambulatory Limitations: no limitations History of Present Illness HPI narrative: With 67-year-old male who presents today with a cough which is been going on 6 days, also nasal congestion. He has some generalized chest pain with coughing and with taking a big breath. Denies fevers, chills, vomiting, diarrhea. Denies lower extremity swelling. Related Data Home Medications ?Medication ?Instructions ?Recorded ?Confirmed ascorbic acid (vitamin C) 500 mg 500 mg PO QDAY 01/02/22 06/20/23 tablet cholecalciferol (vitamin D3) 25 25 mcg PO QDAY 01/02/22 06/20/23 mcg (1,000 unit) capsule omeprazole 20 mg capsule,delayed 20 mg PO QDAY 01/02/22 06/20/23 release vitamin B complex (B 1 tab PO QDAY 07/17/22 06/20/23 Complex-Vitamin B12 tablet) memantine 10 mg tablet 10 mg PO QPM 08/03/22 06/20/23 dexamethasone 2 mg tablet 2 mg PO QDAY 06/20/23 06/20/23 Previous Rx's ?Medication ?Instructions ?Recorded finasteride 5 mg tablet 5 mg PO QDAY #90 tabs 01/02/23 propranolol 40 mg tablet 40 mg PO BID #180 tabs 01/02/23 enoxaparin 150 mg/mL subcutaneous 40 mg (0.2667 mL) subcut DAILY #30 07/23/23 syringe mL amoxicillin 875 mg-potassium 1 tab PO BID #14 tabs 09/15/23 clavulanate 125 mg tablet codeine 10 mg-guaifenesin 100 mg/5 5 ml PO Q4H PRN #120 mL 09/15/23 mL oral liquid doxycycline monohydrate 100 mg 100 mg PO DAILY #14 caps 09/15/23 capsule Allergies Allergy/AdvReac Type Severity Reaction Status Date / Time No Known Allergies Allergy Unknown Verified 06/20/23 13:21 PFSH PFSH Medical History History of smoking ?Z87.891 - Personal history of nicotine dependence (ICD-10) Health care directive on file ?Z78.9 - Other specified health status (ICD-10) Surgical History History of colonoscopy (06/01/18) ?Z98.890 - Other specified postprocedural states (ICD-10) Social History Narrative: Tobacco use What is your current living situation?: I presently have a place to live Problems where you live: no known problems In the past 12 months, utilities in danger of being shut off: no In past 12 months, lack of transportation kept you from medical appts, meetings, work, or getting things needed for daily living: no In the past 12 mos, have been you worried that your food would run out before you had money to buy more?: never true In the past 12 mos, the food you bought just didn't last and you didn't have money to buy more?: never true Smoking Status: Former smoker How often do you have a drink containing alcohol: never How often do you have six or more drinks on one occasion: Never AUDIT-C Alcohol total score: 0 Non-prescribed substance use: denies use How often does anyone, including family, friends and others, physically hurt you: never How often does anyone, including family, friends and others, insult or talk down to you: never How often does anyone, including family, friends and others, threaten you with harm: never Little interest or pleasure in doing things: not at all Feeling down, depressed, or hopeless: not at all service: No Exam Narrative: Exam Narrative: General: Well-developed and well-nourished, no acute distress Head: Atraumatic and normocephalic Eyes: Pupils are equal reactive, extraocular motions intact, conjunctiva clear ENT: External nose and ears are normal, posterior pharynx without erythema or exudate Neck: No midline cervical tenderness, full spontaneous range of motion the neck, trachea midline, no adenopathy Heart: Regular rate and rhythm no murmurs or thrills Lungs: Coarse crackles and rhonchi in the right upper lung field Abdomen: Soft, nontender, nondistended with active bowel sounds Musculoskeletal: No tenderness, deformity, or edema Neurologic: Awake, alert, and oriented x3, no gross focal neurologic deficits, cranial nerves intact as tested Psych: Mood and affect are appropriate Skin: No rashes Const: Vital Signs, click to edit/add: Vital Signs - 24 hr 09/15/23 08:49 Temperature 97.5 F L Pulse Rate [Right Pulse Oximeter] 83 Respiratory Rate 22 Blood Pressure [Ri ght Upper Arm] 168/85 H Pulse Oximetry 95 Oxygen Delivery Me thod Room Air Course Course ED Course: Patient seen and examined, reviewed prior oncology note from June 2023 which was follow-up for lung cancer with metastases to the brain, noted at that visit lungs are clear bilaterally. Patient presents today with cough and nasal congestion as well as shortness of breath. On exam here, oxygen saturations are normal, vital is stable with no tachypnea. He has coarse rhonchi and crackles in the right upper lobe. Discussed possible testing, patient did a COVID test at home which was negative. We discussed if patient had respiratory panel today, likely would be negative for RSV, COVID, influenza and given his health history and findings on physical exam would recommend antibiotic treatment for pneumonia anyway. Similarly, we discussed doing a chest x-ray but given his clinical findings would start antibiotics anyway. Patient elects to defer testing for now, will be started on double coverage with Augmentin and doxycycline and stable for discharge Vital Signs Vital signs: Initial Vital Signs Temperature 97.5 F L 09/15/23 08:49 Temperature Source Temporal Artery Scan 09/15/23 08:49 Pulse Rate 83 09/15/23 08:49 Respiratory Rate 22 09/15/23 08:49 Blood Pressure 168/85 H 09/15/23 08:49 Blood Pressure Mean 112 H 09/15/23 08:49 Blood Pressure Position Sitting 09/15/23 08:49 Pulse Oximetry 95 09/15/23 08:49 Oxygen Delivery Method Room Air 09/15/23 08:49 Vital Signs Temperature 97.5 F L 09/15/23 08:49 Pulse Rate 83 09/15/23 08:49 Respiratory Rate 22 09/15/23 08:49 Blood Pressure 168/85 H 09/15/23 08:49 Pulse Oximetry 95 09/15/23 08:49 Oxygen Delivery Method Room Air 09/15/23 08:49 Temperature 97.5 F L 09/15/23 08:49 Pulse Rate 83 09/15/23 08:49 Respiratory Rate 22 09/15/23 08:49 Blood Pressure 168/85 H 09/15/23 08:49 Pulse Oximetry 95 09/15/23 08:49 Oxygen Delivery Method Room Air 09/15/23 08:49 Discharge Plan Discharge Clinical Impression: Community acquired pneumonia Patient Disposition: Home, Self-Care Condition: Stable Instructions: Community Acquired Pneumonia (DC) Additional Instructions: Take antibiotics as prescribed. You can continue to use Mucinex to help with cough. Activity Level: Activity as Tolerated Discharge Diet: Regular Prescriptions: New amoxicillin-pot clavulanate 875-125 mg tablet 1 tab PO BID Qty: 14 0RF doxycycline monohydrate 100 mg capsule 100 mg PO DAILY Qty: 14 0RF codeine-guaifenesin 10-100 mg/5 mL liquid 5 ml PO Q4H PRNQty: 120 0RF No Action vitamin B complex [B Complex-Vitamin B12] Tablet 1 tab PO QDAY dexamethasone 2 mg tablet 2 mg PO QDAY omeprazole 20 mg capsule,delayed release(DR/EC) 20 mg PO QDAY ascorbic acid (vitamin C) 500 mg tablet 500 mg PO QDAY cholecalciferol (vitamin D3) 25 mcg (1,000 unit) capsule 25 mcg PO QDAY memantine 10 mg tablet 10 mg PO QPM finasteride 5 mg tablet 5 mg PO QDAY Qty: 90 3RF propranolol 40 mg tablet 40 mg PO BID Qty: 180 3RF enoxaparin 150 mg/mL syringe 40 mg subcut DAILY Qty: 30 5RF Follow Up/Referrals: August Parr MD [Primary Care Provider] - Stand Alone Forms: [facility] Info Instructions
== END 2023-09-15 09:47 | disposition home or self-care (01) ==
LOC: ED 09:39
PROVIDERS: Emergency Provider Family Medicine; PCP Family Medicine
DX: J18.9 Pneumonia, unspecified organism (principal)
CPT/HCPCS: 99283; 99284

== ENCOUNTER 2023-10-04 13:39 | Outpatient (CLI) | payer MEDICARE, BC, SELFPAY ==
--- NOTE | 2023-10-04 14:00 | PE_ITS ---
[facility] [address] [facility] [address] Phone:?[phone] Fax:?[phone] Referring Physician Information: Yoanna Mcgrath M.D. [address] [facility] [address] Phone:?[phone] Fax:?[phone] Patient:Hector Whitehead D.O.B:?1955 Sex:?Male Phone:?[phone] [facility] MRN:?[id number] Exam Date:?10/04/2023 EXAM: PET/CT EYES TO THIGHS, CANCER RESTAGING CLINICAL INFORMATION: Lung cancer, restaging. TECHNICAL INFORMATION: Helical acquisition of data was obtained from the orbits to the upper thighs with reconstruction of 3.75 mm thick images at 3.[address] data was used for attenuation correction. PET scanning was performed through the same anatomic range 33 minutes following administration of 12.03 mCi of 18-FDG delivered intravenously. The patient's glucose at the time of the injection was 89 mg/dL. PET, CT and PET/CT fusion images are interpreted using a computer viewing workstation. PET, CT and PET/CT fusion images were archived and saved in the patient's permanent medical record. COMPARISON: PET-CTs from 05/31/2023 and 02/09/2023. INTERPRETATION: Head and Neck: There are no abnormal hypermetabolic foci within the head or neck. There is physiologic uptake in the intracranial soft tissues. Chest: When compared to the prior PET-CTs, there is stable right perihilar soft tissue thickening/fibrosis with subtle FDG avidity, with a maximum SUV of 3.00, previously 3.55 (May 2023) and 4.40 (January 2023). There are no other abnormal hypermetabolic foci within the chest. Background mediastinal blood pool uptake has a maximum SUV of 3.03. No lung nodules or masses detected on this free-breathing exam. No lymphadenopathy detected. Abdomen and Pelvis: There are no abnormal hypermetabolic foci within the abdomen or pelvis. Background hepatic parenchymal uptake has a maximum SUV of 3.82. There is physiologic excretion of radiotracer in the urine and bowel. Skeleton, Musculature, and Integument: No abnormal hypermetabolic foci within the skeleton. No gavino osteoblastic or osteolytic disease. CONCLUSION: Stable right perihilar soft tissue thickening with minimal FDG uptake, as before. 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 No convincing evidence of local recurrence or viable svitlana/distant metastasis at this time. Electronically signed on 10/05/2023 1:37:00 PM by Matt Gaines M.D.
== END 2023-10-04 13:40 | disposition home or self-care (01) ==
LOC: RAD 13:40
PROVIDERS: PCP Family Medicine; Visit Provider Internal Medicine Hematology & Oncology
DX: C34.31 Malignant neoplasm of lower lobe, right bronchus or lung (principal)
CPT/HCPCS: 78815; A9552

== ENCOUNTER 2023-10-05 12:43 | Outpatient (CLI) | payer MEDICARE, BC, SELFPAY ==
--- NOTE | 2023-10-05 13:00 | CRLHL7_ITS ---
For Patients: As a result of the Century Cures Act, medical imaging exams and procedure reports are released immediately into your electronic medical record. You may view this report before your referring provider. If you have questions, please contact your health care provider. Indication: Lung cancer, evaluate for intracranial metastases. Technique: Multisequence multiplanar MRI the brain prior to and following administration of 20 cc Dotarem gadolinium based intravenous contrast. Comparison: MRI brain dated 08/15/2023. Findings: Multiple intracranial metastases as follows: - No interval change in the 14 mm enhancing lesion in the left frontal oconnell radiata. - Stable additional punctate focus of enhancement left postcentral gyrus (series 13, image 29). - Decreased conspicuity of a punctate focus of enhancement in the left frontal lobe (series 13, image 33) - Punctate focus of enhancement in the left occipital lobe (series 15, image 78 on prior exam) is no longer seen. - Enhancing lesion within the 4th ventricle is decreased in size now measuring 4 mm (series 13, image 143) No focus of new suspicious enhancement is definitely identified. There is mild susceptibility artifact associated with the left oconnell radiata metastasis. A right parieto-occipital developmental venous anomaly is again incidentally noted. The ventricles are unchanged in size. No suspicious calvarial lesion is identified. The orbits are unremarkable. The paranasal sinuses and mastoid air cells are predominantly clear. Impression: 1. Stable 14 mm enhancing lesion in the left frontal oconnell radiata. 2. Stable punctate focus of enhancement in the left postcentral gyrus (series 13, image 29). 3. Decreased conspicuity of previously referenced lesions within the 4th ventricle, left occipital lobe, and left frontal lobe. 4. No focus of new suspicious enhancement. 5. No acute intracranial abnormality. Dictated by Boom Boyd MD @ 10/08/2023 1:23:39 PM (Electronically Signed)
== END 2023-10-05 12:44 | disposition home or self-care (01) ==
PROVIDERS: PCP Family Medicine; Visit Provider Nurse Practitioner
DX: C79.31 Secondary malignant neoplasm of brain (principal)
CPT/HCPCS: 70553; A9575

== ENCOUNTER 2024-01-28 09:03 | Outpatient (CLI) | payer MEDICARE, BC, SELFPAY ==
--- NOTE | 2024-01-28 09:15 | CRLHL7_ITS ---
For Patients: As a result of the 21st Century Cures Act, medical imaging exams and procedure reports are released immediately into your electronic medical record. You may view this report before your referring provider. If you have questions, please contact your health care provider. Indication: Hx lung with mets to brain. follow up Technique: Noncontrast sagittal T1, axial FLAIR, T2 turbo spine echo, and diffusion weighted images. Supplemental post contrast T1 weighted axial and coronal sequences are provided after administration of 19 mL Dotarem gadolinium-based IV contrast. Comparison: MRI 10/05/2023 and 08/15/2023 Findings: New metastatic lesions: - 0.2 cm enhancing lesion in the right middle frontal gyrus (series 1001, image 42). - 0.3 cm enhancing lesion in the left middle frontal gyrus (series 1001, image 42). - 0.2 cm enhancing lesion in the left middle frontal gyrus (series 1001 image 61). - 0.3 cm enhancing lesion in the left inferior parietal lobule (series 1001 image 65). - 0.3 cm focus of enhancement in the left superior cerebellum (series 1001 image 114). - 0.3 cm focus of enhancement in the right inferior temporal cortex (series 1001 image 113). - 0.2 cm focus of enhancement in the left parietal lobe (series 1001 image 84 better seen on coronal series 1013 image 201). Enlargement of 1 cm craniocaudal enhancing mass in the left posterior medulla with moderate adjacent vasogenic edema (series 1001, image 146). Enlargement of 0.8 centimeter enhancing mass in the medial right anterior temporal pole previously 0.4 cm (series 1001, image 125). Decreased conspicuity of a 0.2 cm enhancing lesion in the left precentral gyrus (series 1001, image 35). 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 Stable 1.3 x 1 x 1.4 cm enhancing lesion in the left frontal oconnell radiata with overall decreased adjacent vasogenic edema. There is no evidence of diffusion restriction to suggest acute ischemia. No significant mass effect or midline shift. No hydrocephalus. Expected intracranial vascular flow voids are preserved. Calvarial marrow signal is within normal limits. The orbits are unremarkable. Leftward deviation of the nasal septum. Impression : 1. Seven new enhancing lesions compatible with progression of metastatic disease. 2. Enlargement of lesions in the right anterior temporal lobe and left medulla. Otherwise stable or decreased conspicuity of metastatic lesions. 3. No evidence of acute infarct, hemorrhage or significant mass effect. Dictated by Ashish Hawkins MD @ 01/29/2024 7:32:50 AM (Electronically Signed)
== END 2024-01-28 09:04 | disposition home or self-care (01) ==
LOC: MRI 09:04
PROVIDERS: PCP Family Medicine; Visit Provider Nurse Practitioner
DX: C79.31 Secondary malignant neoplasm of brain (principal)
CPT/HCPCS: 70553; A9575

== ENCOUNTER 2024-02-07 14:01 | Outpatient (CLI) | payer MEDICARE, BC, SELFPAY ==
--- NOTE | 2024-02-07 14:30 | PE_ITS ---
[facility] [address] [facility] [address] Phone:?[phone] Fax:?[phone] Referring Physician Information: Yoanna Mcgrath M.D. [address] [facility] [address] Phone:?[phone] Fax:?[phone] Patient:Hector Whitehead D.O.B:?1955 Sex:?Male Phone:?[phone] [facility] MRN:?[id number] Exam Date:?02/07/2024 EXAM:?PET/CT EYES TO THIGHS, CANCER RESTAGING CLINICAL INFORMATION: Lung cancer restaging, history of brain metastasis TECHNICAL INFORMATION: Helical acquisition of data was obtained from the vertex to the upper thighs with reconstruction of 3.75 mm thick images at 3.[address] data was used for attenuation correction. PET scanning was performed through the same anatomic range 60 minutes following administration of 12.37 mCi of 18-FDG delivered intravenously. The patient's glucose at the time of the injection was 72 mg/dL. PET, CT and PET/CT fusion images are interpreted using a computer viewing workstation. PET, CT and PET/CT fusion images were archived and saved in the patient's permanent medical record. COMPARISON: PET/CT 10/04/2023, MRI brain 01/28/2024, and other prior exams INTERPRETATION: Mediastinal blood pool activity: 3.45 Background liver parenchymal uptake: 3.63 Head and Neck: There are no abnormal hypermetabolic foci within the head or neck. There is physiologic uptake in the intracranial soft tissues. Chest: Redemonstrated right perihilar consolidative opacity which is stable from the prior exams. Similar low level radiotracer avidity with an SUV max of 3.5, previously 3. There are no other abnormal hypermetabolic foci within the chest. No lung nodules or masses detected on this free-breathing exam. No lymphadenopathy detected. Coronary artery atherosclerosis. Atherosclerosis of the thoracic aorta. Abdomen and Pelvis: There are no abnormal hypermetabolic foci within the abdomen or pelvis. There is physiologic excretion of radiotracer in the urine and bowel. A 1.2 cm exophytic cyst in the upper pole of the left kidney. Aortoiliac atherosclerosis. Mild to moderate stool burden. A few unchanged foci of uptake in the left lateral abdominal wall with an SUV max of 3.69, of uncertain clinical significance but the stability is reassuring. Skeleton, Musculature, and Integument: No abnormal hypermetabolic foci within the skeleton. No gavino osteoblastic or osteolytic disease. CONCLUSION: * Stable right perihilar consolidative opacity with low-level FDG avidity which is favored to reflect posttreatment related radiation fibrosis. No definite evidence of local recurrence of disease. * No evidence of metastatic disease. Electronically signed on 02/11/2024 9:25:00 AM by Kevin Mar D.O
== END 2024-02-07 14:02 | disposition home or self-care (01) ==
LOC: RAD 14:02
PROVIDERS: PCP Family Medicine; Visit Provider Internal Medicine Hematology & Oncology
DX: C34.31 Malignant neoplasm of lower lobe, right bronchus or lung (principal); N28.1 Cyst of kidney, acquired
CPT/HCPCS: 78815; A9552

== ENCOUNTER 2024-02-11 15:00 | Outpatient (RCR) | payer MEDICARE, BC, SELFPAY ==
--- NOTE | 2024-01-15 09:21 | PC.NURSE ---
Pt called yesterday to clarify PET scan time on 01/24/2024. RN called [facility] and they reported that they didn't have any orders nor was pt scheduled. Order and paperwork faxed (note: fax stamp from 10/10/23) again. Pt is now scheduled for PET scan on 02/07/2024. Fletcher will see Dr. Mcgrath on 02/11/2024 to discuss PET and brain MRI. Pt aware and agrees with this plan.
== END 2024-04-06 23:59 | disposition home or self-care (01) ==
LOC: CCIC 15:00
PROVIDERS: PCP Family Medicine; Visit Provider Internal Medicine Hematology & Oncology
DX: C34.31 Malignant neoplasm of lower lobe, right bronchus or lung (principal); Z86.718 Personal history of other venous thrombosis and embolism; Z86.711 Personal history of pulmonary embolism; Z79.01 Long term (current) use of anticoagulants
CPT/HCPCS: 99213; 99214; G0463

== ENCOUNTER 2024-04-01 13:26 | Outpatient (CLI) | payer MEDICARE, BC, SELFPAY ==
--- NOTE | 2024-04-01 13:45 | CRLHL7_ITS ---
For Patients: As a result of the Century Cures Act, medical imaging exams and procedure reports are released immediately into your electronic medical record. You may view this report before your referring provider. If you have questions, please contact your health care provider. Indication: Left arm paresthesias. Technique: Multisequence multiplanar MRI of the cervical spine without the use of intravenous contrast. Comparison: MRI cervical spine dated 05/21/2021. Findings: Similar straightening of the normal cervical lordosis. Similar advanced multilevel disc desiccation and height loss. No T1 hypointense infiltrative lesion. A foreshortened appearance of the pedicles may reflect a component of congenital spinal canal stenosis. The cervical spinal cord is normal in signal intensity. The short segment intramedullary signal abnormality at C3-C4 on prior exam is no longer seen. C2-C3: Small posterior disc osteophyte complex. No significant spinal canal stenosis or right neural foraminal narrowing. Moderate left neural foraminal narrowing associated with uncovertebral and facet joint arthrosis. C3-C4: Small posterior disc osteophyte complex resulting in mild spinal canal stenosis. Severe right and mild left neural foraminal narrowing associated with uncovertebral and facet joint arthrosis. C4-C5: Small posterior disc osteophyte complex and ligamentum flavum hypertrophy resulting in mild-moderate spinal canal stenosis. Moderate-severe bilateral neural foraminal narrowing associated with uncovertebral and facet joint arthrosis. C5-C6: Small posterior disc osteophyte complex resulting in mild-moderate spinal canal stenosis. Moderate-severe bilateral neural foraminal narrowing associated with uncovertebral and facet arthrosis. C6-C7: Small posterior disc osteophyte complex without significant spinal canal stenosis. Moderate-severe right and mild left neural foraminal narrowing associated with uncovertebral hypertrophy. C7-T1: Shallow symmetric disc bulge. Mild facet joint arthrosis. No significant spinal canal or neural foraminal stenosis. Impression: 1. Similar straightening of the normal cervical lordosis and advanced multilevel disc height loss. 2. As before, foreshortened appearance of the pedicles which may reflect a component of congenital spinal canal stenosis. 3. Short-segment intramedullary signal abnormality at C3-C4 on prior exam is no longer definitively seen. 4. At C3-C4, mild residual spinal canal stenosis and similar severe right neural foraminal narrowing. 5. At C4-C5 and C5-C6, similar mild-moderate spinal canal stenosis and moderate-severe bilateral neural foraminal narrowing. 6. At C6-C7, similar moderate-severe right neural foraminal narrowing. Dictated by Boom Boyd MD @ 04/02/2024 9:54:12 AM (Electronically Signed)
== END 2024-04-01 13:27 | disposition home or self-care (01) ==
LOC: MRI 13:27
PROVIDERS: PCP Family Medicine; Visit Provider Physician Assistant Surgical
DX: R20.0 Anesthesia of skin (principal); M50.21 Other cervical disc displacement, high cervical region; M50.222 Other cervical disc displacement at C5-C6 level; M50.221 Other cervical disc displacement at C4-C5 level; S12.9XXS Fracture of neck, unspecified, sequela
CPT/HCPCS: 72141

== ENCOUNTER 2024-04-29 16:00 | Outpatient (RCR) | payer MEDICARE, BC, SELFPAY ==
--- NOTE | 2024-04-22 15:45 | PT.OPEX ---
[facility] Outpatient Eval PT [facility] Outpatient Eval Start: 04/22/24 07:24 Freq: Status: Active Protocol: Document 04/22/24 07:25 TANNER (Rec: 04/22/24 15:43 TANNER [id number]) E-signed By Preston Pollock DPT Physical Therapy Outpatient Evaluation Insurance Information Recert Due Date 07/21/24 Insurance Name Medicare B Medical Diagnosis cervical pain Treating Diagnosis neck pain muscle weakness Referring MD Thomas Workman Subjective Fletcher comes into clinic dealing with history of neck stiffness with L UE symptoms including NT and weakness since this past February. 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 Is some consideration that sensation change in hand could be due to brain METS- has a repeat brain MRI in ~ a week to determine if any notable changes since last MRI. Is also getting a EMG to test bilateral nerves this . Overall since February he states it began with gradual pain in the L upper arm and progressed into weakness into the hand. Pain in shoulder has improved. Sometimes can be woken up from hand NT. Last week symptoms has not changed. 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 C3-6 moderate to severe C6-7 Notable neural narrowing in C spine- R > L Objective Other/Pertinent Objective CERVICAL ROM Flexion: 35 Extension: 40 Right Rotation: 55 Left Rotation: 52 SHOULDER AROM WNL NECK/SHOULDER MMT: [employer] strength: R 40 Kg L 33 KG Shoulder shrug: R 5/5 L5 /5 Shoulder flexion: R 5/5 L4+ /5 Shoulder abduction: R 5/5 L 4/ 5 Shoulder External Rotation: R 5/5 L4+ /5 Shoulder Internal Rotation: R 5/5 L5 /5 Elbow Flexion: R 5/5 L 4+/5 Elbow Ext: R 5/5 L 4+/5 SPECIAL TEST Spurlings Test:- Cervical distraction test:- JOINT MOBILITY/PALPATION hypomobile C3-C6 with central PAs along with side glides bilateral increased suboccipital tenderness Assessment Assessment/Impression Pt is a 68 yr old male who presents with concerns of Neck pain with NT and UE weakness. Patient also has notable objective findings including limited ROM, impaired joint mobility in Cspine, decreased strength also likely contributing to the problem. Patient is a good candidate for skilled therapy to target deficits described above. Skilled PT intervention is necessary for use of therapeutic exercise manual therapy, neuromuscular re- education, and therapeutic activity. Functional impairments include difficulty with: dishes, sleeping lifting carrying. See appropriate sections of PT eval for complete list of goals and POC. D/C plan and criteria is for pt to achieve the goals as listed below or until max rehab potential is met. Pt was agreeable with plan of care and goals established. Plan of Care Rehabilitation Potential Good Physical Therapy Goals GOALS Pt will be independent with HEP within 10-12 weeks to allow for independence and continued improvement past formal therapy Patient will report or demonstrate the ability to have 5/5 strength in all UE planes for household and recreational activity within 10-12 weeks. Patient will demonstrate/ report ability to sleep with losing <1 hours of sleep being interrupted by neck or LUE pain. within 10-12 weeks Pt will be able to demonstrate / report ability to lift #15 from counter height to overhead to without pain within 10-12 weeks, for household and work activity. / Coordination/Communication With Referral Source Treatment Plan/Direct Interventions Joint Mobilization,Manual Therapy,Neuromuscular Re-ed, Self-Care/Home Management, Therapeutic Activities, Therapeutic Exercises Frequency/Duration 1-2 visits a week for 10-12 week Patient Will Be Discharged From Therapy Skills Plateau,Independent w/ HEP,Independently Progressing Evaluation Billing Untimed Code Treatment Minutes 30 Complexity Moderate Certification Information Initial Certification Date 04/22/24 Ending Certification Date 07/21/24 Provider Signature Required Yes Provider Signature Shows Agreement With POC & Medical Necessity Physician NPI Number Write NPI# Here Physician Comment/Change : Physician Signature & Date Requested Please Sign/Date Here
== END 2024-06-26 11:37 | disposition home or self-care (01) ==
PROVIDERS: PCP Family Medicine; Visit Provider Physician Assistant Surgical
DX: S12.9XXS Fracture of neck, unspecified, sequela (principal); R20.0 Anesthesia of skin; M43.6 Torticollis; Z51.89 Encounter for other specified aftercare
CPT/HCPCS: 97110; 97140; 97162

== ENCOUNTER 2024-04-29 17:05 | Outpatient (CLI) | payer MEDICARE, BC, SELFPAY | END 2024-04-29 17:06 | disposition home or self-care (01) | LOC: MRI 17:06 | PROVIDERS: PCP Family Medicine; Visit Provider Internal Medicine | DX: C79.31 Secondary malignant neoplasm of brain (principal) | CPT/HCPCS: 70553; A9575 ==

== ENCOUNTER 2024-05-15 13:19 | Outpatient (CLI) | payer MEDICARE, BC, SELFPAY | END 2024-05-15 13:20 | disposition home or self-care (01) | LOC: RAD 13:20 | PROVIDERS: PCP Family Medicine; Visit Provider Internal Medicine Hematology & Oncology | DX: C34.31 Malignant neoplasm of lower lobe, right bronchus or lung (principal) | CPT/HCPCS: 78815; A9552 ==

== ENCOUNTER 2024-06-02 10:46 | Outpatient (CLI) | payer MEDICARE, BC, SELFPAY | END 2024-06-02 10:47 | disposition home or self-care (01) | PROVIDERS: PCP Family Medicine; Visit Provider Family Medicine | DX: I10 Essential (primary) hypertension (principal); C34.91 Malignant neoplasm of unspecified part of right bronchus or lung; R63.4 Abnormal weight loss; Z13.29 Encounter for screening for other suspected endocrine disorder; Z13.21 Encounter for screening for nutritional disorder; Z13.6 Encounter for screening for cardiovascular disorders; Z12.5 Encounter for screening for malignant neoplasm of prostate | CPT/HCPCS: 80053; 80061; 82607; 84443; G0103 ==

== ENCOUNTER 2024-06-25 10:56 | Outpatient (CLI) | payer MEDICARE, BC, SELFPAY ==
--- NOTE | 2024-06-25 09:15 | CRLHL7_ITS ---
For Patients: As a result of the Century Cures Act, medical imaging exams and procedure reports are released immediately into your electronic medical record. You may view this report before your referring provider. If you have questions, please contact your health care provider. INDICATION: Lung cancer, evaluate for intracranial metastasis. TECHNIQUE: Multisequence multiplanar MRI of the brain prior to and following administration of 20 cc Dotarem gadolinium-based intravenous contrast. COMPARISON: MRI brain dated 04/29/2024. FINDINGS: Multiple enhancing intracranial metastases reference as follows on axial postcontrast series 1001: -Unchanged 11 x 11 x 14 mm enhancing lesion within the left frontal centrum semiovale (image 82) with similar associated susceptibility artifact -Unchanged 5 mm enhancing lesion within the right anterior temporal lobe (image 128) -Unchanged 3 mm enhancing lesion within the right superior frontal gyrus (image 44) -Slight increased size of a 18 x 11 x 14 mm lesion within the dorsal medulla (image 166) with increased extension to the right cerebellum along the margin of the 4th ventricle. -Unchanged punctate enhancing lesion within the left superior left frontal lobe (image 55). No new enhancing lesion. No evidence of acute ischemia. Few scattered foci of susceptibility artifact within the left frontal lobe, including associated with the above dominant lesion in the centrum semiovale. Stable right parietal developmental venous anomaly. The ventricles are unchanged in size. Bone marrow signal intensity of the calvarium and skull base is within normal limits. The globes are symmetric. There is mild scattered paranasal sinus mucosal thickening. IMPRESSION: 1. Increase of the enhancing lesion within the dorsal medulla with extension along the margin of the 4th ventricle to the right cerebellum. 2. Similar appearance of multiple additional previously reference lesions as above. 3. No new enhancing lesion or acute intracranial abnormality. Dictated by Boom Boyd MD @ 06/26/2024 11:35:02 AM (Electronically Signed)
== END 2024-06-25 10:57 | disposition home or self-care (01) ==
LOC: MRI 10:57
PROVIDERS: PCP Family Medicine; Visit Provider Physician Assistant
DX: C34.31 Malignant neoplasm of lower lobe, right bronchus or lung (principal); G93.9 Disorder of brain, unspecified
CPT/HCPCS: 70553; A9575

== ENCOUNTER 2024-08-21 14:23 | Outpatient (CLI) | payer MEDICARE, BC, SELFPAY ==
--- NOTE | 2024-08-21 14:30 | CRLHL7_ITS ---
For Patients: As a result of the 21st Century Cures Act, medical imaging exams and procedure reports are released immediately into your electronic medical record. You may view this report before your referring provider. If you have questions, please contact your health care provider. EXAM: FDG PET-CT Skull Base to Thighs CLINICAL INFORMATION: 68-year-old man with history of lung cancer. Restaging. TECHNIQUE: Radiopharmaceutical: 18F-fluorodeoxyglucose (18F-FDG) Dose: 13.72 milliCurie. Blood glucose: 128 mg/dL. Image acquisition: At approximately 60 minutes following IV tracer administration via a right antecubital vein, positron emission tomography was performed from the skull base through the mid thigh. Non-contrast low-dose helical CT imaging was performed over the same range without breath-hold for attenuation correction of PET images and anatomic correlation; it is neither sufficient, nor should it be substituted for diagnostic purposes. COMPARISON: FDG PET-CT 05/15/2024 FINDINGS: Mediastinal blood pool FDG uptake: SUVMax 2.9 (Image 109) Liver background parenchymal FDG uptake: SUVMax 4.1 (Image 133) PET Findings: No substantial change mildly FDG avid consolidative opacity in the right lower lobe representing posttreatment changes SUVMax 3.4 (image 110) previously SUVMax 3.3 (image 107, remeasured in the same plane). No abnormal FDG avid lymphadenopathy. No abnormal FDG uptake in the visualized skeleton. Increased moderate FDG uptake at the anorectal canal without CT correlate SUVMax 6.8 (image 277) previously SUVMax 4.7 (image 274, remeasured in the same plane). Tracer uptake elsewhere is physiologic. Non-PET findings: Scattered subsegmental atelectasis/scarring. Coronary artery calcifications. Atherosclerotic calcifications of the thoracic and abdominal aorta. Left renal hypodensity is too small to characterize but statistically likely a cyst. Colonic diverticulosis. Multilevel degenerative changes in the spine. IMPRESSION: 1. No substantial change of mildly FDG avid posttreatment changes in the right lower lobe. 2. No evidence of new FDG avid malignancy. 3. Increased moderate FDG uptake at the anorectal canal without CT correlate may be inflammatory or physiologic. Correlate with direct inspection to exclude a lesion. Dictated by Len Armendariz MD @ 08/25/2024 11:07:05 AM (Electronically Signed)
== END 2024-08-21 14:24 | disposition home or self-care (01) ==
LOC: RAD 14:23
PROVIDERS: PCP Family Medicine; Visit Provider Internal Medicine Hematology & Oncology
DX: C34.31 Malignant neoplasm of lower lobe, right bronchus or lung (principal)
CPT/HCPCS: 78815; A9552

== ENCOUNTER 2024-09-12 12:11 | Outpatient (CLI) | payer MEDICARE, BC, SELFPAY | END 2024-09-12 12:12 | disposition home or self-care (01) | LOC: OP CLINIC 12:12 | PROVIDERS: PCP Family Medicine; Visit Provider Internal Medicine Gastroenterology | DX: R93.3 Abnormal findings on diagnostic imaging of other parts of digestive tract (principal); D12.8 Benign neoplasm of rectum; K64.0 First degree hemorrhoids | CPT/HCPCS: 45338 ==

== ENCOUNTER 2024-10-27 07:45 | Outpatient (RCR) | payer MEDICARE, BC, SELFPAY ==
[2024-07-03 08:52] LABS: Hematocrit 43.6 % (37.0-53.0); Hemoglobin* 14.5 gm/dL (13.5-17.5); Immature Granulocytes Abs Auto 0.03 K/uL (0.00-0.30); Immature Granulocytes Pct Auto 0.4 %; Lymphocytes Absolute Auto 1.42 K/uL (0.90-2.90); Mean Corpuscular HGB Conc 33 gm/dL (32-36); Mean Corpuscular Hemoglobin 31 pg (26-34); Mean Corpuscular Volume 93 fL (80-100); RDW Coefficient of Variation % 14.2 % (11.5-15.5); Red Blood Count 4.69 m/uL (4.30-5.90); White Blood Count* 6.71 K/uL (4.50-11.00)
[2024-07-03 08:56] LABS: Slide Review Reflex No
[2024-07-03 09:03] LABS: Chloride* 101 mmol/L (96-114)
[2024-07-03 09:04] LABS: Albumin* 4.4 g/dL (3.3-5.0); Potassium* 4.9 mmol/L (3.6-5.1); Sodium* 139 mmol/L (135-149)
[2024-07-03 09:06] LABS: Blood Urea Nitrogen* 20 mg/dL (7-30); Creatinine* 1.0 mg/dL (0.5-1.5); Est. Creatinine Clearance* 60.65; Estimated Glomerular Filt Rate 81 ml/min
[2024-07-03 09:07] LABS: Alanine Aminotransferase* 29 U/L (4-50); Alkaline Phosphatase* 35 U/L (40-150); Anion Gap 8 mEq/L (7-15); Aspartate Amino Transferase* 24 U/L (12-35); Bilirubin Total* 0.7 mg/dL (0.1-1.5); Calcium* 9.8 mg/dL (8.4-10.6); Carbon Dioxide* 30 mmol/L (20-32); Glucose* 102 mg/dL (60-115); Total Protein* 6.7 g/dL (6.0-8.3)
--- NOTE | 2024-07-03 11:15 | URNOTE ---
Received request for prior authorization for Pembrolizumab (J9271), Bevacizumab- adcd (Vegzelma) (Q5129), Pemetrezed (Alimta) (J9305). Pt has Medicare/ [place] (active on Availity). Prior authorization is not required. Services are based on medical necessity and follow Medicare guidelines.
--- NOTE | 2024-07-07 14:07 | ONC.NURNOTE ---
PSDS = 0/1 denies need for social welfare research worker, CRP or dietitian discussed all these options
--- NOTE | 2024-07-07 14:08 | ONC.NURNOTE ---
reviewed possible side effects of luz, pembro, and pemetrexed discussed calling if fever over 100.4, diarrhea, rash, cough, change in breathing or any other change from baseline reviewed contents of treatment binder, reviewed self care at home, treatment schedule questions addressed consents, ILYA reviewed and signed
[2024-07-10 09:02] VITALS: BP 130/70; PULSE 60; RESP 20; TEMP 35.2; O2SAT 100
[2024-07-10] MEDS: PEMBROLIZUMAB 200 MG, TUBING PRIMARY 1 EACH, In-line 0.2 micron filter set 1 EACH in 0.... 216 MG IVPB (09:46)
--- NOTE | 2024-07-10 10:13 | URNOTE ---
Received request for prior authorization for Felisha ([id number]). Pt has Medicare/ [place] (active on Availity 07/10/24). Prior authorization is not required. Services are based on medical necessity and follow Medicare guidelines.
[2024-07-10 10:36] LABS: Appearance Urine Clear (Clear)
[2024-07-10] MEDS: [UNRECOGNIZED DRUG - OTHER] IVPB (11:22)
[2024-07-10] MEDS: TUBING SECONDARY IVPB (11:22)
[2024-07-10] MEDS: BEVACIZUMAB BVZR IVPB (11:22)
[2024-07-10] MEDS: ONDANSETRON 2 MG/ML inj 8 MG IVP (13:01)
[2024-07-10] MEDS: DEXAMETHASONE 10 MG/ML PF IVP (13:02)
[2024-07-10] MEDS: TUBING SECONDARY IV (13:10)
[2024-07-10] MEDS: [UNRECOGNIZED DRUG - OTHER] IV (13:10)
[2024-07-10] MEDS: PEMETREXED IV (13:10)
--- NOTE | 2024-07-11 13:38 | ONC.NURNOTE ---
RN called patient today to follow up after 1st treatment yesterday. Patient reports feeling great and has no questions or concerns. RN reviewed nausea meds again with patient. Advised him to call clinic if anything changed. Pt verbalized understanding and agreeable to the plan.
[2024-07-30 08:43] LABS: Hematocrit 42.3 % (37.0-53.0); Hemoglobin* 14.1 gm/dL (13.5-17.5); Immature Granulocytes Abs Auto 0.24 K/uL (0.00-0.30); Immature Granulocytes Pct Auto 3.6 %; Mean Corpuscular HGB Conc 33 gm/dL (32-36); Mean Corpuscular Hemoglobin 31 pg (26-34); Mean Corpuscular Volume 94 fL (80-100); RDW Coefficient of Variation % 15.2 % (11.5-15.5); Red Blood Count 4.49 m/uL (4.30-5.90); White Blood Count* 6.65 K/uL (4.50-11.00)
[2024-07-30 08:51] LABS: Lymphocytes Absolute Auto 1.00 K/uL (0.90-2.90); Slide Review Reflex No
[2024-07-30 08:56] LABS: Chloride* 100 mmol/L (96-114)
[2024-07-30 08:57] LABS: Albumin* 4.0 g/dL (3.3-5.0); Potassium* 4.6 mmol/L (3.6-5.1); Sodium* 137 mmol/L (135-149)
[2024-07-30 08:59] LABS: Blood Urea Nitrogen* 20 mg/dL (7-30); Creatinine* 1.0 mg/dL (0.5-1.5); Est. Creatinine Clearance* 62.91; Estimated Glomerular Filt Rate 81 ml/min
[2024-07-30 09:00] LABS: Alanine Aminotransferase* 48 U/L (4-50); Alkaline Phosphatase* 37 U/L (40-150); Aspartate Amino Transferase* 29 U/L (12-35); Bilirubin Total* 0.7 mg/dL (0.1-1.5); Calcium* 9.4 mg/dL (8.4-10.6); Carbon Dioxide* 33 mmol/L (20-32); Glucose* 107 mg/dL (60-115); Total Protein* 6.5 g/dL (6.0-8.3)
[2024-07-30 09:01] LABS: Anion Gap 4 mEq/L (7-15)
[2024-07-30 10:52] LABS: Protein Creatinine Ratio Urine 0.20 (0-0.19)
[2024-08-04 08:04] VITALS: BP 136/77; PULSE 64; RESP 14; TEMP 35.8; O2SAT 98
[2024-08-04] MEDS: PEMBROLIZUMAB 200 MG, TUBING PRIMARY 1 EACH, In-line 0.2 micron filter set 1 EACH in 0.... 216 MG IVPB (09:10)
[2024-08-04] MEDS: BEVACIZUMAB BVZR IVPB (09:43)
[2024-08-04] MEDS: [UNRECOGNIZED DRUG - OTHER] IVPB (09:43)
[2024-08-04] MEDS: TUBING SECONDARY IVPB (09:43)
[2024-08-04] MEDS: ONDANSETRON 2 MG/ML inj 8 MG IVP (10:55)
[2024-08-04] MEDS: DEXAMETHASONE 10 MG/ML PF IVP (10:55)
[2024-08-04] MEDS: PEMETREXED IV (11:16)
[2024-08-04] MEDS: [UNRECOGNIZED DRUG - OTHER] IV (11:16)
[2024-08-04] MEDS: TUBING SECONDARY IV (11:16)
[2024-08-25 10:58] LABS: Hematocrit 39.6 % (37.0-53.0); Hemoglobin* 12.9 gm/dL (13.5-17.5); Immature Granulocytes Abs Auto 0.81 K/uL (0.00-0.30); Immature Granulocytes Pct Auto 8.4 %; Mean Corpuscular HGB Conc 33 gm/dL (32-36); Mean Corpuscular Hemoglobin 31 pg (26-34); Mean Corpuscular Volume 96 fL (80-100); RDW Coefficient of Variation % 16.2 % (11.5-15.5); Red Blood Count 4.14 m/uL (4.30-5.90); White Blood Count* 9.62 K/uL (4.50-11.00)
[2024-08-25 11:05] LABS: Lymphocytes Absolute Auto 0.60 K/uL (0.90-2.90); Slide Review Reflex No
[2024-08-25 11:12] LABS: Albumin* 4.0 g/dL (3.3-5.0); Chloride* 102 mmol/L (96-114); Sodium* 138 mmol/L (135-149)
[2024-08-25 11:13] LABS: Potassium* 4.0 mmol/L (3.6-5.1)
[2024-08-25 11:15] LABS: Alanine Aminotransferase* 46 U/L (4-50); Alkaline Phosphatase* 68 U/L (40-150); Anion Gap 6 mEq/L (7-15); Aspartate Amino Transferase* 27 U/L (12-35); Bilirubin Total* 0.5 mg/dL (0.1-1.5); Blood Urea Nitrogen* 22 mg/dL (7-30); Carbon Dioxide* 30 mmol/L (20-32); Creatinine* 0.8 mg/dL (0.5-1.5); Est. Creatinine Clearance* 62.91; Estimated Glomerular Filt Rate 96 ml/min; Total Protein* 6.8 g/dL (6.0-8.3)
[2024-08-25 11:16] LABS: Calcium* 9.3 mg/dL (8.4-10.6); Glucose* 163 mg/dL (60-115)
[2024-08-25 11:47] LABS: Protein Creatinine Ratio Urine 0.22 (0-0.19)
[2024-08-25] MEDS: PEMBROLIZUMAB 200 MG, TUBING PRIMARY 1 EACH, In-line 0.2 micron filter set 1 EACH in 0.... 216 MG IVPB (12:48)
[2024-08-25] MEDS: BEVACIZUMAB BVZR IVPB (13:22)
[2024-08-25] MEDS: [UNRECOGNIZED DRUG - OTHER] IVPB (13:22)
[2024-08-25] MEDS: TUBING SECONDARY IVPB (13:22)
[2024-08-25] MEDS: DEXAMETHASONE 10 MG/ML PF IVP (13:59)
[2024-08-25] MEDS: ONDANSETRON 2 MG/ML inj 8 MG IVP (13:59)
[2024-08-25] MEDS: TUBING SECONDARY IV (14:06)
[2024-08-25] MEDS: PEMETREXED IV (14:06)
[2024-08-25] MEDS: [UNRECOGNIZED DRUG - OTHER] IV (14:06)
[2024-09-15 10:45] LABS: Hematocrit 39.5 % (37.0-53.0); Hemoglobin* 12.8 gm/dL (13.5-17.5); Immature Granulocytes Abs Auto 0.30 K/uL (0.00-0.30); Immature Granulocytes Pct Auto 4.1 %; Mean Corpuscular HGB Conc 32 gm/dL (32-36); Mean Corpuscular Hemoglobin 32 pg (26-34); Mean Corpuscular Volume 98 fL (80-100); RDW Coefficient of Variation % 17.6 % (11.5-15.5); Red Blood Count 4.04 m/uL (4.30-5.90); White Blood Count* 7.27 K/uL (4.50-11.00)
[2024-09-15 10:46] LABS: Lymphocytes Absolute Auto 0.70 K/uL (0.90-2.90); Slide Review Reflex No
[2024-09-15 10:54] LABS: Albumin* 4.2 g/dL (3.3-5.0); Chloride* 98 mmol/L (96-114); Potassium* 3.4 mmol/L (3.6-5.1); Sodium* 134 mmol/L (135-149)
[2024-09-15 10:56] LABS: Bilirubin Total* 0.7 mg/dL (0.1-1.5); Blood Urea Nitrogen* 22 mg/dL (7-30); Creatinine* 0.9 mg/dL (0.5-1.5); Est. Creatinine Clearance* 62.91; Estimated Glomerular Filt Rate 92 ml/min
[2024-09-15 10:57] LABS: Alanine Aminotransferase* 87 U/L (4-50); Alkaline Phosphatase* 59 U/L (40-150); Anion Gap 7 mEq/L (7-15); Aspartate Amino Transferase* 38 U/L (12-35); Calcium* 9.0 mg/dL (8.4-10.6); Carbon Dioxide* 29 mmol/L (20-32); Glucose* 140 mg/dL (60-115); Total Protein* 6.9 g/dL (6.0-8.3)
[2024-09-15 11:38] LABS: Appearance Urine Clear (Clear)
[2024-09-15] MEDS: PEMBROLIZUMAB 200 MG, TUBING PRIMARY 1 EACH, In-line 0.2 micron filter set 1 EACH in 0.... 216 MG IVPB (12:27)
[2024-09-15] MEDS: [UNRECOGNIZED DRUG - OTHER] IVPB (13:09)
[2024-09-15] MEDS: BEVACIZUMAB BVZR IVPB (13:09)
[2024-09-15] MEDS: TUBING SECONDARY IVPB (13:09)
[2024-09-15] MEDS: DEXAMETHASONE 10 MG/ML PF IVP (13:56)
[2024-09-15] MEDS: ONDANSETRON 2 MG/ML inj 8 MG IVP (13:56)
[2024-09-15] MEDS: TUBING SECONDARY IV (14:07)
[2024-09-15] MEDS: PEMETREXED IV (14:07)
[2024-09-15] MEDS: [UNRECOGNIZED DRUG - OTHER] IV (14:07)
[2024-09-22 08:57] LABS: Albumin* 4.2 g/dL (3.3-5.0); Chloride* 101 mmol/L (96-114); Potassium* 4.0 mmol/L (3.6-5.1); Sodium* 136 mmol/L (135-149)
[2024-09-22 08:59] LABS: Blood Urea Nitrogen* 22 mg/dL (7-30); Creatinine* 0.9 mg/dL (0.5-1.5); Est. Creatinine Clearance* 62.91; Estimated Glomerular Filt Rate 92 ml/min
[2024-09-22 09:00] LABS: Alanine Aminotransferase* 72 U/L (4-50); Alkaline Phosphatase* 52 U/L (40-150); Anion Gap 5 mEq/L (7-15); Aspartate Amino Transferase* 39 U/L (12-35); Bilirubin Total* 0.6 mg/dL (0.1-1.5); Calcium* 9.2 mg/dL (8.4-10.6); Carbon Dioxide* 30 mmol/L (20-32); Glucose* 136 mg/dL (60-115); Total Protein* 6.6 g/dL (6.0-8.3)
[2024-10-06 09:29] LABS: Hematocrit 39.9 % (37.0-53.0); Hemoglobin* 12.9 gm/dL (13.5-17.5); Immature Granulocytes Abs Auto 0.12 K/uL (0.00-0.30); Immature Granulocytes Pct Auto 1.5 %; Mean Corpuscular HGB Conc 32 gm/dL (32-36); Mean Corpuscular Hemoglobin 32 pg (26-34); Mean Corpuscular Volume 100 fL (80-100); RDW Coefficient of Variation % 18.3 % (11.5-15.5); Red Blood Count 4.00 m/uL (4.30-5.90); White Blood Count* 8.21 K/uL (4.50-11.00)
[2024-10-06 09:42] LABS: Chloride* 104 mmol/L (96-114)
[2024-10-06 09:43] LABS: Albumin* 4.3 g/dL (3.3-5.0); Potassium* 3.9 mmol/L (3.6-5.1); Sodium* 138 mmol/L (135-149)
[2024-10-06 09:45] LABS: Blood Urea Nitrogen* 21 mg/dL (7-30); Creatinine* 0.9 mg/dL (0.5-1.5); Est. Creatinine Clearance* 62.03; Estimated Glomerular Filt Rate 92 ml/min
[2024-10-06 09:46] LABS: Alanine Aminotransferase* 96 U/L (4-50); Alkaline Phosphatase* 49 U/L (40-150); Anion Gap 3 mEq/L (7-15); Aspartate Amino Transferase* 39 U/L (12-35); Bilirubin Total* 0.7 mg/dL (0.1-1.5); Calcium* 9.1 mg/dL (8.4-10.6); Carbon Dioxide* 31 mmol/L (20-32); Glucose* 180 mg/dL (60-115); Total Protein* 6.6 g/dL (6.0-8.3)
[2024-10-06 09:57] LABS: Lymphocytes Absolute Auto 0.70 K/uL (0.90-2.90); Slide Review Reflex No
[2024-10-06 10:11] LABS: Protein Creatinine Ratio Urine 0.08 (0-0.19)
[2024-10-06] MEDS: SODIUM CHLORIDE 0.9 % (FLUSH) 10 ML SYRINGE IVF (12:00)
[2024-10-06] MEDS: PEMBROLIZUMAB 200 MG, TUBING PRIMARY 1 EACH, In-line 0.2 micron filter set 1 EACH in 0.... 216 MG IVPB (12:04)
[2024-10-06] MEDS: BEVACIZUMAB BVZR IVPB (12:38)
[2024-10-06] MEDS: TUBING SECONDARY IVPB (12:38)
[2024-10-06] MEDS: [UNRECOGNIZED DRUG - OTHER] IVPB (12:38)
[2024-10-06] MEDS: ONDANSETRON 2 MG/ML inj 8 MG IVP (13:16)
[2024-10-06] MEDS: DEXAMETHASONE 10 MG/ML PF IVP (13:17)
[2024-10-06] MEDS: [UNRECOGNIZED DRUG - OTHER] IV (13:43)
[2024-10-06] MEDS: PEMETREXED IV (13:43)
[2024-10-06] MEDS: TUBING SECONDARY IV (13:43)
[2024-10-27 08:03] LABS: Hematocrit 40.0 % (37.0-53.0); Hemoglobin* 12.8 gm/dL (13.5-17.5); Immature Granulocytes Abs Auto 0.10 K/uL (0.00-0.30); Immature Granulocytes Pct Auto 1.2 %; Mean Corpuscular HGB Conc 32 gm/dL (32-36); Mean Corpuscular Hemoglobin 32 pg (26-34); Mean Corpuscular Volume 101 fL (80-100); RDW Coefficient of Variation % 17.9 % (11.5-15.5); Red Blood Count 3.98 m/uL (4.30-5.90); White Blood Count* 8.22 K/uL (4.50-11.00)
[2024-10-27 08:06] LABS: Lymphocytes Absolute Auto 0.60 K/uL (0.90-2.90)
[2024-10-27 08:07] LABS: Slide Review Reflex No
[2024-10-27 08:18] LABS: Albumin* 4.2 g/dL (3.3-5.0); Chloride* 103 mmol/L (96-114); Potassium* 4.6 mmol/L (3.6-5.1); Sodium* 137 mmol/L (135-149)
[2024-10-27 08:20] LABS: Blood Urea Nitrogen* 14 mg/dL (7-30); Creatinine* 0.8 mg/dL (0.5-1.5); Est. Creatinine Clearance* 62.03; Estimated Glomerular Filt Rate 95 ml/min
[2024-10-27 08:21] LABS: Alanine Aminotransferase* 75 U/L (4-50); Alkaline Phosphatase* 54 U/L (40-150); Anion Gap 6 mEq/L (7-15); Aspartate Amino Transferase* 37 U/L (12-35); Bilirubin Total* 0.7 mg/dL (0.1-1.5); Calcium* 9.1 mg/dL (8.4-10.6); Carbon Dioxide* 28 mmol/L (20-32); Glucose* 107 mg/dL (60-115); Total Protein* 6.7 g/dL (6.0-8.3)
[2024-10-27 08:23] LABS: Protein Creatinine Ratio Urine 0.06 (0-0.19)
[2024-10-27] MEDS: SODIUM CHLORIDE 0.9 % (FLUSH) 10 ML SYRINGE IVF (09:47)
[2024-10-27] MEDS: DEXAMETHASONE 10 MG/ML PF IVP (09:47)
[2024-10-27] MEDS: ONDANSETRON 2 MG/ML inj 8 MG IVP (09:47)
[2024-10-27] MEDS: PEMBROLIZUMAB 200 MG, TUBING PRIMARY 1 EACH, In-line 0.2 micron filter set 1 EACH in 0.... 216 MG IVPB (10:04)
[2024-10-27] MEDS: TUBING SECONDARY IVPB (10:36)
[2024-10-27] MEDS: [UNRECOGNIZED DRUG - OTHER] IVPB (10:36)
[2024-10-27] MEDS: BEVACIZUMAB BVZR IVPB (10:36)
[2024-10-27] MEDS: TUBING SECONDARY IV (11:11)
[2024-10-27] MEDS: PEMETREXED IV (11:11)
[2024-10-27] MEDS: [UNRECOGNIZED DRUG - OTHER] IV (11:11)
== END 2024-11-16 23:59 | disposition home or self-care (01) ==
LOC: CCIC 07:45
PROVIDERS: Clinical Nurse Specialist; Physician Assistant; PCP Family Medicine; Referring Provider Family Medicine; Visit Provider Internal Medicine Hematology & Oncology
DX: Z51.11 Encounter for antineoplastic chemotherapy (principal); C34.31 Malignant neoplasm of lower lobe, right bronchus or lung; Z79.899 Other long term (current) drug therapy; C79.31 Secondary malignant neoplasm of brain; Z79.01 Long term (current) use of anticoagulants; Z86.711 Personal history of pulmonary embolism; Z87.891 Personal history of nicotine dependence
CPT/HCPCS: 36415; 80053; 81003; 82570; 84156; 84443; 85025; 96372; 96375; 96411; 96413; 96415; 96417; 99214; 99215; G0463; J1100; J2405; J2795; J3420; J7050; J9271; J9305; Q5118

== ENCOUNTER 2024-11-13 15:19 | Outpatient (CLI) | payer MEDICARE, BC, SELFPAY ==
--- NOTE | 2024-11-13 15:30 | CRLHL7_ITS ---
For Patients: As a result of the Century Cures Act, medical imaging exams and procedure reports are released immediately into your electronic medical record. You may view this report before your referring provider. If you have questions, please contact your health care provider. CLINICAL HISTORY: Lung cancer. TECHNIQUE: Following IV injection of 65-mewagn-0-deoxyglucose (FDG) and a standard uptake period of approximately 60 minutes, a non-contrast CT scan followed by a PET scan were acquired along the length of the body from the mid portion of the head to the mid thighs. The non-contrast CT was used for anatomic localization and photon attenuation correction of the PET scan. Blood Glucose Level (mg/dL): 109 FDG Dose (mCi): 12.9 COMPARISON: PET-CT scans dated 21 August 2024 and 15 May 2024. FINDINGS: Head/Neck: No abnormal activity identified in the head and neck. Chest: No mediastinal or hilar adenopathy. No axillary adenopathy. The lungs show right perihilar consolidation/scarring, SUV max 2.9 previously 3.3. No new focal pulmonary opacities. No pneumothorax. Abdomen/Pelvis: No focal abnormalities identified in the visualized portions of the liver, spleen, pancreas, adrenal glands, and kidneys. No hydronephrosis. Increased activity in the anal canal with no corresponding CT abnormality, SUV max 12.9 previously 6.8. The remainder of the GI tract is incompletely distended but shows no gross abnormalities. No retroperitoneal, pelvic sidewall, or mesenteric adenopathy. Atherosclerotic vascular calcifications. Bones: Degenerative changes of the spine. No abnormal skeletal activity identified. IMPRESSION: 1. Right perihilar consolidation/scarring shows slightly decreased activity. 2. Increasing activity in the anal canal with no corresponding CT abnormality may be physiologic. Correlate with physical exam. 3. No other abnormal activity identified. Dictated by Israel Call MD @ 11/18/2024 9:01:17 AM (Electronically Signed)
== END 2024-11-13 15:20 | disposition home or self-care (01) ==
LOC: RAD 15:20
PROVIDERS: PCP Family Medicine; Visit Provider Physician Assistant
DX: C34.91 Malignant neoplasm of unspecified part of right bronchus or lung (principal); C79.31 Secondary malignant neoplasm of brain
CPT/HCPCS: 78815; A9552

== ENCOUNTER 2025-02-03 10:44 | Emergency (ER) | payer MEDICARE, BC, SELFPAY ==
[2025-02-03 10:47] VITALS: BP 175/96; PULSE 77; RESP 18; TEMP 35.9; O2SAT 99; BMI 34.4
--- NOTE | 2025-02-03 11:34 | CRLHL7_ITS ---
For Patients: As a result of the Century Cures Act, medical imaging exams and procedure reports are released immediately into your electronic medical record. You may view this report before your referring provider. If you have questions, please contact your health care provider. Indication: low back pain, worse around L4-L5 Technique: Noncontrast CT lumbar spine Please note that all CT scans at this facility use dose modulation, iterative reconstruction, and/or weight-based dosing when appropriate to reduce radiation dose to as low as reasonably achievable. Comparison: CT-PET 11/13/2024, MRI lumbar spine 03/10/2020 Findings: Stable cyst arises from the left kidney measures 1.3 cm. Vascular calcifications. No retroperitoneal adenopathy or aneurysm. Vascular calcifications. Bridging osteophyte formation across the sacroiliac joints. No intrinsic osseous lesion. New mild compression of the L4 superior endplate compared to the PET scan. Similar chronic deformity of the L3 endplate. Also new increased concavity of the L2 superior endplate. Chronic changes to the L1 superior endplate. T11 and T12 are similar. Multilevel discogenic spurring. No pars defect. Facet joints are relatively maintained. Neural foramina and spinal canal appear similar. Impression: New mild compression fractures of the L4 and L2 superior endplates since 11/13/2024. Please note that all CT scans at this facility use dose modulation, iterative reconstruction, and/or weight-based dosing when appropriate to reduce radiation dose to as low as reasonably achievable. Dictated by Ashish Harp MD @ 02/03/2025 12:21:27 PM (Electronically Signed)
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
[2025-02-03] MEDS: MORPHINE 4 MG/ML INJ IM ×2 (11:41→12:18)
== END 2025-02-03 12:53 | disposition home or self-care (01) ==
PROVIDERS: Emergency Provider Student in an Organized Health Care Education/Training Program; PCP Family Medicine
DX: S32.029A Unspecified fracture of second lumbar vertebra, initial encounter for closed fracture (principal); S32.049A Unspecified fracture of fourth lumbar vertebra, initial encounter for closed fracture; V86.55XA Driver of 3- or 4- wheeled all-terrain vehicle (ATV) injured in nontraffic accident, initial encounter; Y93.L9 Activity, other outdoor activity
CPT/HCPCS: 72131; 96372; 99284; J2270

== ENCOUNTER 2025-02-24 07:07 | Outpatient (CLI) | payer MEDICARE, BC, SELFPAY ==
--- NOTE | 2025-02-24 07:30 | CRLHL7_ITS ---
For Patients: As a result of the 21st Century Cures Act, medical imaging exams and procedure reports are released immediately into your electronic medical record. You may view this report before your referring provider. If you have questions, please contact your health care provider. EXAM: PET-CT SKULL BASE TO THIGH CLINICAL INFORMATION: 69-yo male with metastatic lung cancer. Prior radiation treatment. Last chemotherapy 3 weeks ago.. Patient is referred for further characterization/response assessment. TECHNIQUE: Radiopharmaceutical: 15.4 mCi of 18F-FDG Intravenous injection site: Rac Uptake time: 59 minutes Blood glucose level at the time of injection: 81 mg/dL Field of view: Skull base to mid-thighs CT protocol: The low-dose, free-breathing, noncontrast CT performed as part of this study is designed for the purposes of attenuation correction and lesion localization, and it is neither sufficient, nor it should be substituted for diagnostic purposes. COMPARISON: PET-CT 11/13/2024, 08/21/2024 and 05/15/2024. CT lumbar spine 02/03/2025. MRI brain 06/25/2024 FINDINGS: Physiologic background liver standardized uptake value (SUV mean and SUV max) reported for comparison between PET studies: 2.7 and 3.7. Visualized head and neck: No abnormal uptake in the visualized brain. See most recent/updated brain MRI (02/24/2025) for detailed characterization of known intracranial metastatic lesions. Decreased mucosal thickening left maxillary sinus with a small retention cyst/polyp along the floor. Head and neck lymph nodes: No enlarged or hypermetabolic cervical chain lymph nodes. Lungs: Respiratory motion. No new uptake in the left lung. Post treatment changes right lung perihilar region and right lower lobe. Similar curvilinear right perihilar opacity with small air bronchograms, 7.5 x 2.5, SUV max 2.9 (fused image 100). Previously 7.4 cm, SUV max 2.9. Not significantly changed. Posterior right lower lobe micronodule is new without uptake (fused image 107). Too small to characterize. Additional micronodules in each lung are unchanged. No new uptake. Strand-like atelectasis or scarring in the lateral inferior lingula and dependent lung bases. Thoracic lymph nodes: No enlarged or hypermetabolic mediastinal, hilar or axillary lymph nodes. Other chest findings: Diffuse coronary vascular calcifications. Trace pleural fluid. No significant pericardial effusion. Hepatobiliary: No measurable tracer avid liver lesions. Spleen: No abnormal uptake. No splenomegaly. Small probable splenule. Pancreas: No abnormal uptake. No adjacent inflammatory change. Adrenal glands: Similar configuration. No new or progressive uptake. Kidneys and bladder: Bilateral perinephric stranding. No obstruction or abnormal renal uptake. Similar low-density upper pole left renal lesion without uptake. Possibly a small cyst. Nondilated ureters. Partially distended bladder. Bowel and peritoneum: No abnormal gastric or proximal small bowel uptake. Areas of uptake within decompressed distal small bowel loops in the right lower quadrant and scattered throughout decompressed portions of the colon demonstrate no gross abnormality on noncontrast CT. Unremarkable appendix. Scattered mild colonic diverticulosis. No adjacent inflammatory changes. Decreased uptake in the lower anal canal/sphincter, SUV max 8.7. Previously 12.9. Correlate with symptoms. Pelvic organs: No abnormal uptake. Abdominopelvic lymph nodes: No enlarged or hypermetabolic abdominopelvic lymph nodes. Musculoskeletal, soft tissues, skin: No new aggressive, lytic or expansile osseous lesions with uptake. Degenerative type uptake in the shoulders and spine. New moderate superior endplate depression of L2 and mild superior endplate depression of L4 compared to prior PET-CT. Similar endplate deformities of L1 and L3 without new uptake. Mild wedging T11 similar to prior. Other: Diffuse aortoiliac vascular calcifications. Fat containing left inguinal hernia. Soft tissue stranding within the bilateral lower ventral abdomen most likely represents injection sites. IMPRESSION: 1. Posttreatment changes of the right lung with similar curvilinear right perihilar consolidative opacity/scarring and residual mild uptake not significantly changed. No new uptake in the right upper lobe or left lung. 2. Scattered areas of uptake with a decompressed distal small bowel loops and throughout the length of decompressed colon with no gross abnormality on noncontrast CT. Possibly reactive/inflammatory or related to metformin use. Decreased uptake in the lower anal canal/finger compared to prior. No measurable abnormality on noncontrast CT. Correlate with symptoms and consider updated cross-sectional imaging of the abdomen/pelvis as indicated. 3. No new aggressive tracer avid osseous lesions. New moderate superior endplate depression of L2 and mild superior endplate depression of L4. Posterior vertebral body cortex intact. No definitive vertebral body lesion. Correlate with symptoms. 4. See most recent/updated brain MRI (02/24/2025) for detailed characterization of known intracranial metastatic lesions. 5. Other nonacute findings as detailed in the body of the report. Dictated by Preston Grimes MD @ 02/24/2025 3:39:59 PM (Electronically Signed)
== END 2025-02-24 07:08 | disposition home or self-care (01) ==
PROVIDERS: PCP Family Medicine; Visit Provider Internal Medicine Hematology & Oncology
DX: C34.31 Malignant neoplasm of lower lobe, right bronchus or lung (principal); I67.82 Cerebral ischemia
CPT/HCPCS: 78815; A9552

== ENCOUNTER 2025-02-24 07:15 | Outpatient (CLI) | payer MEDICARE, BC, SELFPAY ==
--- NOTE | 2025-02-24 09:15 | CRLHL7_ITS ---
For Patients: As a result of the Century Cures Act, medical imaging exams and procedure reports are released immediately into your electronic medical record. You may view this report before your referring provider. If you have questions, please contact your health care provider. INDICATION: Brain tumor, followup. COMPARISON: 07/09/2024. TECHNIQUE: Multiplanar T1, T2, FLAIR and diffusion-weighted imaging. Post gadolinium T1 weighted sequences. Gadolinium 19 cc IV. FINDINGS: Compared to the previous exam, the heterogeneous enhancing ovoid mass of the mid left centrum semiovale has decreased in size and now measures approximate 6 mm and maximal diameter (post gamma and axial image 66). Persistent surrounding vasogenic edema. Significant decrease size and conspicuity of the enhancing mass of the left dorsal medulla with only residual marginal enhancement open (axial post gadolinium image 148). A similar enhancing nodule of the right cerebellar peduncle has completely resolved. No new abnormal enhancement or enhancing lesions elsewhere. No intracranial hemorrhage. No abnormal ventricular dilatation. Scattered patchy foci of T2/FLAIR signal hyperintensity within the white matter postop hemispheres and sherrell consistent with chronic deep white matter small vessel ischemic changes. No intracranial hemorrhage. No abnormal ventricular dilatation. Intracranial vascular flow voids are preserved. No mass effect or midline shift. No restricted diffusion to suggest acute ischemia. No susceptibility artifact of remote hemorrhage. There is susceptibility artifact corresponding with the metastatic lesion of the left Tolbert radiata likely secondary to posttreatment changes. Similarly, there is faint susceptibility artifact along the left dorsal margin of the medulla (series 7, image 6) also likely secondary to posttreatment changes. Bilateral orbits are unremarkable. Normal appearing sella. Visualized paranasal sinuses and mastoid air cells are unremarkable. IMPRESSION: 1. Heterogeneously enhancing ovoid metastatic lesion of the mid left centrum semiovale has decreased in size. Corresponds to separate artifact consistent with posttreatment changes. Persistent surrounding edema. 2. Significant decreased size and conspicuity of the enhancing mass of the left dorsal medulla. Interval resolution of a enhancing lesion of the right cerebellar peduncle 3. No new abnormal enhancement or enhancing lesions elsewhere. 4. Mild generalized cerebral volume loss. Chronic deep white matter small vessel ischemic changes. 5. No acute intracranial abnormality 6. No acute or chronic intracranial hemorrhage Dictated by Mata Boyd MD @ 02/24/2025 3:38:47 PM (Electronically Signed)
== END 2025-02-24 07:16 | disposition home or self-care (01) ==
PROVIDERS: PCP Family Medicine; Visit Provider Nurse Practitioner
DX: C79.31 Secondary malignant neoplasm of brain (principal); Z08 Encounter for follow-up examination after completed treatment for malignant neoplasm; G93.6 Cerebral edema; R90.82 White matter disease, unspecified; G31.9 Degenerative disease of nervous system, unspecified; C34.31 Malignant neoplasm of lower lobe, right bronchus or lung; I67.82 Cerebral ischemia
CPT/HCPCS: 70553; A9575